=== PATIENT | female | born 1990 | race Caucasian/White ===

== ENCOUNTER 2018-04-27 19:07 | Inpatient (IN) ==
[~2018-04-27 19:07] MED LIST: Aminoglycoside Consult 1 EACH MC ONE
[2018-04-27] MEDS ORDERED: Naloxone 0.4 MG/ML INJ IVP PRN (21:49)
[2018-04-27] MEDS ORDERED: Acetaminophen 650 MG RECTAL SUPP RC PRN (21:49)
[2018-04-27] MEDS ORDERED: Vancomycin (wt based) 1,000 MG VIAL IVPB SCH (22:00)
[2018-04-27] MEDS ORDERED: Levofloxacin 750 MG/150 ML 750 MG/150 ML BAG IVPB SCH (22:00)
[2018-04-27] MEDS ORDERED: Acetaminophen 325 MG TABLET PO ONE (22:14)
--- NOTE | 2018-04-27 22:32 | Internal Med History&Physical ---
<Matthew Yoon - Last Filed: 04/27/18 23:34> Date of Encounter: 04/27/18 Time of Encounter: 22:30 Internal Medicine - H&P: HPI Chief complaint: Dyspnea/cough Admitted From: Hospital to Hospital Transfer Plans for Post Hospital Care: Home History of present illness: Ms. Krishnan is a 28 year old female with history of hypertension presents with shortness of breath and cough. Patient states on Monday she felt lightheadedness, fatigue, and had a syncopal episode. She continued to feel fatigued and then yesterday on she developed shortness of breath and felt feverish. At that point she presented to [place] emergency department where she was diagnosed with pneumonia and admitted to the hospital. Patient states while admitted to the hospital she continued to feel worse this morning developed a cough and had worsening shortness of breath. She reports having a hard time breathing and using her abdominal muscles to breathe which is causing her pain and fatigue. She reports continued fevers and intermittent nausea. She denies recent upper respiratory illness, sore throat, chest pain, vomiting, diarrhea or dysuria, lower extremity swelling, pain in her extremities. Past Med Surg Social Fam HX - Past Medical History Medical history: hypertension, migraine, other Additional medical history: HTN+ Psychiatric history: anxiety - Past Surgical History Surgical History: other Additional surgical history: Tubal Ligation - Social History Smoking Status: Current every day smoker (Patient reports that she started smoking 3 weeks ago, has never smoked before this) Packs per day: 0.5 Smokeless Tobacco Status: No Alcohol use: occasionally Drug use: none Recent Out of Country Travel Within the Last 8 Weeks: No - Family History Father Living Status: Still Living Mother Hx Family Cancer: Yes (cervical CA) Hx Family Endocrine Disorder: Yes (Diabetes) Internal Medicine - H&P: Meds Metoprolol Succinate [Toprol Xl] 25 mg PO DAILY 04/27/18 [History] 3 Allergy/AdvReac Type Severity Reaction Status Date / Time No Known Allergies Allergy Verified 07/05/17 10:59 All Systems PM: A 10-system review of systems was performed and is negative for pertinent findings except as documented above in the HPI. - Constitutional Constitutional: chills, fatigue, fever(s), lethargy - EENT Eyes: no blurry vision, no change in vision Nose, mouth and throat: no sinus pain, no sinus pressure, no sore throat - Cardiovascular Cardiovascular ROS IM: dyspnea, dyspnea on exertion, lightheadedness, palpitations, syncope, no chest pain, no diaphoresis - Respiratory Respiratory: cough, dyspnea, dyspnea on exertion, pain on inspiration, excessive phlegm production, no wheezing - Gastrointestinal Gastrointestinal: abdominal pain (with heavy breathing), nausea, no diarrhea, no vomiting - Genitourinary Genitourinary: no dysuria, no urinary frequency - Musculoskeletal Musculoskeletal ROS IM: no arthralgias, no numbness, no tingling - Integumentary Integumentary IM: no erythema, no new lesions - Neurological Neurological ROS: dizziness, no confusion, no focal weakness, no numbness, no tingling, no weakness - Psychiatric Psychiatric: anxiety, no depression - Endocrine Endocrine IM: no polydipsia, no polyuria - Hematologic/Lymphatic Hematologic/Lymphatic: no easy bleeding, no easy bruising, no lymphadenopathy - Allergic/Immunologic Allergic/Immunologic: no tongue swelling, no throat swelling - Constitutional Vitals: Temp Pulse Resp BP Pulse Ox 101.7 F H 134 34 133/88 95 04/27/18 22:00 04/27/18 22:00 04/27/18 22:00 04/27/18 22:00 04/27/18 22:00 General appearance: Present: mild distress, A&O X 3, answers questions appropriately Exam: Patient appears to be in respiratory distress, using accessory muscles. She is awake, alert and mentating appropriately and answering questions appropriately. - Head Head exam: Present: atraumatic, normal inspection, normocephalic - Eye Eye exam: Present: EOMI, PERRL - ENT ENT exam: Present: mucous membranes moist, normal oropharynx - Neck Neck exam general surgery: Present: full ROM, supple - Respiratory Respiratory exam: Present: accessory muscle use, respiratory distress, rhonchi ( diffuse), tachypnea. Absent: wheezes - Cardiovascular Cardiovascular exam: Present: +S1, +S2, tachycardia. Absent: gallop, irregular rhythm, rubs, systolic murmur - GI/Abdominal GI/Abdominal exam: Present: normal bowel sounds, soft, tenderness (mild epigastric). Absent: distended - Extremities Exam Extremities exam: Present: warm, radial pulses palpable and symmetrical. Absent : pedal edema, tenderness - Neurological Exam Neurological exam: Present: alert, CN II-XII intact, oriented X3, no focal deficits - Psychiatric Psychiatric exam: Present: anxious, normal affect, normal mood - Skin Skin exam: Present: dry, intact, warm Internal Med - H&P Results - Labs CBC & Chem 7: 04/27/18 23:00 - Assessment and plan (1) Acute respiratory failure Current Visit: Yes Status: Acute Assessment and plan: Likely secondary to pneumonia and sepsis. Patient requiring increasing oxygen supplementation and in 24 hours chest x-ray has significantly worsened with patchy bilateral infiltrates. Given patient's worsening hypoxia and developed of diffuse bilateral infiltrates concern for progression to ARDS. Patient is having respiratory distress with accessory muscle use and tachypnea. We will transition to BiPAP to assist with workup breathing. If patient continues to progress may require mechanical ventilation. Qualifiers: Respiratory failure complication: hypoxia Qualified Code(s): J96.01 - Acute respiratory failure with hypoxia (2) Sepsis Current Visit: Yes Status: Acute Assessment and plan: Secondary to pneumonia. Patient presented yesterday and received 3L fluid bolus. Lactic acid normal on admission. BP stable at this time. Repeat lactate now, Blood cultures drawn on admission, will repeat now. Hold off on any more fluid administration this time as patient is normotensive. Will closely monitor. Qualifiers: Sepsis type: sepsis due to unspecified organism Qualified Code(s): A41.9 - Sepsis, unspecified organism (3) Pneumonia Current Visit: Yes Status: Acute Assessment and plan: Evidence of multifocal pneumonia on chest x-ray and CT. She will treated for community acquired pneumonia with Rocephin and Zithromax, given patient's worsening clinical status in ICU admission we will broaden her antibiotic coverage to vancomycin, Zosyn, Levaquin. Repeat blood cultures, obtain sputum culture, strep and Legionella urinary antigen, MRSA nasal swab, respiratory infection, mycoplasma serologies. Qualifiers: Pneumonia type: due to unspecified organism Laterality: bilateral Lung location: unspecified part of lung Qualified Code(s): J18.9 - Pneumonia, unspecified organism (4) DVT prophylaxis Current Visit: No Status: Acute Assessment and plan: Heparin 5000 units subcutaneous twice a day. (5) Hypertension Current Visit: Yes Status: Chronic Assessment and plan: History of. Patient currently normotensive. We will hold home metoprolol given concern for sepsis as discussed above and worsening blood pressure Qualifiers: Hypertension type: essential hypertension Qualified Code(s): I10 - Essential (primary) hypertension - Time Spent With Patient Total time spent is greater than 50% in coordination of care (as documented) at patient's floor/unit and/or counseling patient: Hermes Yan - Last Filed: 04/27/18 23:39> Date of Encounter: 04/27/18 Internal Medicine - H&P: HPI History of present illness: Ms. Krishnan is a 28 year old female All Systems PM: A 10-system review of systems was performed and is negative for pertinent findings except as documented above in the HPI. - Constitutional Vitals: Temp Pulse Resp BP Pulse Ox 101.7 F H 134 38 124/89 95 04/27/18 22:00 04/27/18 23:00 04/27/18 23:00 04/27/18 23:00 04/27/18 23:00 Internal Med - H&P Results - Labs CBC & Chem 7: 04/27/18 23:00 Labs: Short CBC 04/27/18 Range/Units 23:00 WBC 17.5 H (4.3-11.1) K/mcL Hgb 12.2 (11.5-15.4) g/dL Hct 38.6 (35.3-44.9) % Plt Count 279 (140-400) K/mcL Neutrophils # 15.8 H (1.6-8.9) K/mcL - ABG Interpretation ABG results: 04/27/18 22:56 ABG pH 7.45 ABG pCO2 33 L ABG pO2 72 L ABG HCO3 23 ABG Total CO2 24 ABG O2 Saturation 95 ABG Base Excess -1 - Assessment and plan (1) DVT prophylaxis Current Visit: No Status: Acute (2) Pneumonia Current Visit: Yes Status: Acute Qualifiers: Pneumonia type: due to unspecified organism Laterality: bilateral Lung location: unspecified part of lung Qualified Code(s): J18.9 - Pneumonia, unspecified organism (3) Sepsis Current Visit: Yes Status: Acute Qualifiers: Sepsis type: sepsis due to unspecified organism Qualified Code(s): A41.9 - Sepsis, unspecified organism (4) Acute respiratory failure Current Visit: Yes Status: Acute Qualifiers: Respiratory failure complication: hypoxia Qualified Code(s): J96.01 - Acute respiratory failure with hypoxia (5) Hypertension Current Visit: Yes Status: Chronic Qualifiers: Hypertension type: essential hypertension Qualified Code(s): I10 - Essential (primary) hypertension - Time Spent With Patient Total time spent is greater than 50% in coordination of care (as documented) at patient's floor/unit and/or counseling patient: - Attending Attestation Deirdre Krishnan 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 She was found febrile to 102F with diminished breath sounds bilaterally. CXR done showed a bilateral infiltrate and due to her persistent tachycardia and elevated d-dimer a CTA was done. This ruled out PE however it showed significant bilateral airspace disease with the appearance of a multifocal pneumonia as per my personal review of the images. She was started on IVF and ceftriaxone/azithromycin for CAP. She showed no improvement over these last 24 hours, with increasing leukocytosis and worsening hypoxia now requiring 3L O2 to maintain SpO2 at 94%. Repeat CXR showed worsening infiltrates as well. She is now transferred here for further care. Based on the above evaluation, we will admit her to ICU level of care for sepsis secondary to multifocal pneumonia with acute hypoxic respiratory failure. On arrival here she appears somewhat clinically stable. Review of systems: All systems reviewed and negative except as listed above in the HPI. Family history remarkable for cervical cancer in mother and heart disease in father. Denies illicit drug use but is an active smoker of recent initiation. Physical exam is remarkable for HR >130 but normal BP. Obese white F lying comfortably in bed in NAD. Short, thick neck. EOMI. No oropharyngeal exudate. Diminished breath sounds bilaterally. Tachycardic but no murmurs. Soft and non- tender abdomen. No peripheral cyanosis. 1+ edema. AAOx3. No focal deficits. Affect appropriate. Plan: Repeat blood cultures, obtain sputum cultures, urine Legionella/Strep Ag, respiratory virus panel, Mycoplasma IgM, MRSA nares swab, HIV testing. Obtain TTE given the appearance of embolic lesions. Escalate abx to vancomycin, piptazo and levofloxacin for additional atypical coverage. Close respiratory watch as she could easily progress into ARDS and may require mechanical ventilation. Keep a neutral fluid balance at this point after already receiving 4L at outside facility and subsequent furosemide. CCT 55 mins. SAUNDRA FIELDS.
[2018-04-27] MEDS: *HR* Promethazine 25 MG/ML VIAL IVP PRN (22:51)
[2018-04-27 23:02] LABS: ABG Base Excess -1 mEq/L (-2 to 3); ABG HCO3 23 mEq/L (21-27); ABG Oxygen Saturation 95 % (95-98); ABG PCO2 33 mmHg (35-45); ABG PH 7.45 pH Units (7.32-7.45); ABG PO2 72 mmHg (85-104); ABG TCO2 24 mEq/L (20-26); Blood Gas PEEP 8 cm H2O
[2018-04-27] MEDS ORDERED: *HR* LORazepam 2 MG/ML VIAL IVP ONE (23:19)
[2018-04-27 23:22] LABS: Basophils % 0.1 %; Eosinophils # 0.3 K/mcL (0.0-0.6); Eosinophils % 1.5 %; Hematocrit 38.6 % (35.3-44.9); Hemoglobin 12.2 g/dL (11.5-15.4); Immature Granulocytes % 0.5 % (0-4); Lymphocytes # 0.7 K/mcL (0.6-4.6); Lymphocytes % 4.1 %; Mean Corpuscular HGB Conc 31.6 g/dL (31.6-35.5); Mean Corpuscular Hemoglobin 23.7 pg (28.0-33.3); Mean Platelet Volume 10.9 fL (9.4-12.4); Monocytes # 0.6 K/mcL (0.0-1.3); Monocytes % 3.7 %; Neutrophils # 15.8 K/mcL (1.6-8.9); Platelet Count 279 K/mcL (140-400); Red Blood Count 5.15 M/mcL (3.82-4.97); Red Cell Distribution Width 15.7 % (11.5-14.5); Segmented Neutrophils % 90.1 %
[2018-04-27] MEDS ORDERED: Ketorolac 30 MG/ML VIAL IVP ONE (23:32)
[2018-04-27 23:45] LABS: Alanine Aminotransferase 10 Units/L (7-52); Albumin 3.6 g/dL (3.5-5.7); Albumin/Globulin Ratio 1.1 (1.1-2.2); Alkaline Phosphatase 74 Units/L (34-104); Aspartate Amino Transferase 11 Units/L (13-39); BUN/Creatinine Ratio 8 (6-26); Bilirubin,Direct 0.2 mg/dL (0.0-0.2); Bilirubin,Indirect 0.4 mg/dL (0.0-1.2); Bilirubin,Total 0.6 mg/dL (0.3-1.0); Blood Urea Nitrogen 5 mg/dL (6-20); Calcium 8.2 mg/dL (8.6-10.3); Carbon Dioxide 24 mEq/L (23-29); Chloride 102 mEq/L (98-107); Globulin 3.3 g/dL (2.4-3.5); Glucose 121 mg/dL (70-105); Magnesium 1.7 mg/dL (1.6-2.6); Osmolality,Calculated 279 (280-300); Potassium 3.6 mEq/L (3.5-5.1); Sodium 135 mEq/L (136-145); Total Protein 6.9 g/dL (6.4-8.9); eGFR For Non-African Americans > 60 (> 60)
[2018-04-27 23:46] LABS: Lactate Dehydrogenase 138 Units/L (140-271)
[2018-04-28 00:05] LABS: Ferritin 59 ng/mL (10-120)
[2018-04-28 00:50] LABS: Adenovirus Not Detected (Not Detect); Bordetella Pertussis Not Detected (Not Detect); Chlamydophila pneumoniae Not Detected (Not Detect); Coronavirus 229E Not Detected (Not Detect); Coronavirus HKU1 Not Detected (Not Detect); Coronavirus NL63 Not Detected (Not Detect); Coronavirus OC43 Not Detected (Not Detect); Human Metapneumovirus Not Detected (Not Detect); Human Rhinovirus/Enterovirus Not Detected (Not Detect); Influenza A Subtype 2009 H1 Not Detected (Not Detect); Influenza A Untypeable Not Detected (Not Detect); Influenza B Not Detected (Not Detect); Mycoplasma pneumoniae Not Detected (Not Detect); Parainfluenza Virus 1 Not Detected (Not Detect); Parainfluenza Virus 2 Not Detected (Not Detect); Parainfluenza Virus 3 Not Detected (Not Detect); Parainfluenza Virus 4 Not Detected (Not Detect); Respiratory Syncytial Virus Not Detected (Not Detect)
[2018-04-28] MEDS ORDERED: Bisacodyl 10 MG RECTAL SUPPOSITORY RC ONE (01:28)
[2018-04-28] MEDS ORDERED: Ondansetron 4 MG/2 ML VIAL ONE (03:30)
[2018-04-28] MEDS ORDERED: Ondansetron 4 MG/2 ML VIAL IVP PRN (03:30)
[2018-04-28] MEDS ORDERED: *HR* LORazepam 2 MG/ML VIAL IVP ONE (03:39)
[2018-04-28] MEDS: Piperacillin/Tazobactam 3.375 GM in 0.9 % Sodium Chloride Mini Bag 100 ML IVPB SCH ×3 (03:45→15:55)
[2018-04-28 04:13] LABS: Albumin 3.3 g/dL (3.5-5.7); Bilirubin,Direct 0.2 mg/dL (0.0-0.2); Bilirubin,Indirect 0.3 mg/dL (0.0-1.2); Bilirubin,Total 0.5 mg/dL (0.3-1.0); Globulin 3.2 g/dL (2.4-3.5); Magnesium 1.6 mg/dL (1.6-2.6); Total Protein 6.5 g/dL (6.4-8.9)
--- NOTE | 2018-04-28 04:17 | Sepsis Event Note ---
Sepsis Reassessment Note - Evaluation Sepsis Screen: Sepsis Risk Current Stage of Sepsis: sepsis Possible Source of Sepsis: pulmonary - Focused Exam Date of Encounter: 04/28/18 Time of Encounter: 04:15 Vital Signs: Vital Signs Temp Pulse Resp BP Pulse Ox 04/28/18 04:00 122 35 137/95 97 04/28/18 03:53 40 123/89 96 04/28/18 03:20 99.7 F H 04/28/18 03:00 124 34 135/112 97 04/28/18 02:00 114 33 121/80 96 04/28/18 01:00 111 30 133/84 96 04/28/18 00:01 126 34 135/78 96 04/27/18 23:37 100.4 F H 04/27/18 23:00 134 38 124/89 95 04/27/18 22:34 137 96 04/27/18 22:17 27 96 04/27/18 22:00 101.7 F H 134 34 133/88 95 Respiratory Exam: Present: rhonchi Cardiovascular Exam: Present: tachycardia. Absent: irregulary irregular Capillary Refill: < 2 seconds Peripheral Pulse Strength: 3+ normal Peripheral Pulse Location: Radial Skin Exam: normal turgor - Reassessment Comments Comments: Patient appears stable. Remains in sepsis, clinically improving
[2018-04-28 05:07] LABS: ABG Base Excess -1 mEq/L (-2 to 3); ABG HCO3 23 mEq/L (21-27); ABG Oxygen Saturation 97 % (95-98); ABG PCO2 34 mmHg (35-45); ABG PH 7.43 pH Units (7.32-7.45); ABG PO2 83 mmHg (85-104); ABG TCO2 24 mEq/L (20-26); Blood Gas PEEP 8 cm H2O
[2018-04-28] MEDS ORDERED: Furosemide 40 MG/4 ML VIAL IVP ONE (05:55)
[2018-04-28] MEDS: *HR* Heparin 5,000 UNIT/ML VIAL SQ SCH ×2 (06:03→17:42)
[2018-04-28] MEDS: *HR* Promethazine 25 MG/ML VIAL IVP PRN ×3 (06:22→19:36)
[2018-04-28] MEDS ORDERED: Benzonatate 100 MG CAPSULE PO PRN (06:29)
[2018-04-28 06:48] LABS: Basophils % 0.1 %; Eosinophils # 0.3 K/mcL (0.0-0.6); Eosinophils % 1.6 %; Hematocrit 36.6 % (35.3-44.9); Hemoglobin 11.3 g/dL (11.5-15.4); Immature Granulocytes % 0.4 % (0-4); Lymphocytes # 0.7 K/mcL (0.6-4.6); Lymphocytes % 3.9 %; Mean Corpuscular HGB Conc 30.9 g/dL (31.6-35.5); Mean Corpuscular Hemoglobin 23.5 pg (28.0-33.3); Mean Corpuscular Volume 76.3 fL (83.0-100.0); Mean Platelet Volume 11.2 fL (9.4-12.4); Monocytes # 0.5 K/mcL (0.0-1.3); Monocytes % 2.6 %; Neutrophils # 16.5 K/mcL (1.6-8.9); Platelet Count 241 K/mcL (140-400); Red Cell Distribution Width 15.6 % (11.5-14.5); Segmented Neutrophils % 91.4 %
--- NOTE | 2018-04-28 07:01 | Pulmonology Consult Note ---
<Aramis Perez W - Last Filed: 04/28/18 08:37> Date of Encounter: 04/28/18 Medications and Allergies Metoprolol Succinate [Toprol Xl] 25 mg PO DAILY 04/27/18 [History] 3 Allergy/AdvReac Type Severity Reaction Status Date / Time No Known Allergies Allergy Verified 07/05/17 10:59 All Systems: The remainder of the systems were reviewed and are negative Physical Examination Vital Signs: Vital Signs, Last 4 Hours Temp Pulse Resp BP Pulse Ox 04/28/18 07:40 99.9 F H 04/28/18 06:00 128 41 140/91 99 04/28/18 05:00 128 37 143/90 97 Results - Laboratory Findings CBC and BMP: 04/28/18 06:30 04/28/18 06:30 ABG ABG pH 7.43 pH Units (7.32-7.45) 04/28/18 05:03 ABG pCO2 34 mmHg (35-45) L 04/28/18 05:03 ABG pO2 83 mmHg (85-104) L 04/28/18 05:03 ABG O2 Saturation 97 % (95-98) 04/28/18 05:03 Abnormal lab findings: Abnormal lab results WBC 18.0 K/mcL (4.3-11.1) H 04/28/18 06:30 Hgb 11.3 g/dL (11.5-15.4) L 04/28/18 06:30 MCV 76.3 fL (83.0-100.0) L 04/28/18 06:30 MCH 23.5 pg (28.0-33.3) L 04/28/18 06:30 MCHC 30.9 g/dL (31.6-35.5) L 04/28/18 06:30 RDW 15.6 % (11.5-14.5) H 04/28/18 06:30 Neutrophils # 16.5 K/mcL (1.6-8.9) H 04/28/18 06:30 ABG pCO2 34 mmHg (35-45) L 04/28/18 05:03 ABG pO2 83 mmHg (85-104) L 04/28/18 05:03 Creatinine 1.38 mg/dL (0.60-1.20) H 04/28/18 06:30 Est GFR ( Amer) 56 (> 60) L 04/28/18 06:30 Est GFR (Non-Af Amer) 46 (> 60) L 04/28/18 06:30 Glucose 116 mg/dL (70-105) H 04/28/18 06:30 POC Glucose 140 mg/dL (70-99) H 04/27/18 21:59 Calcium 8.0 mg/dL (8.6-10.3) L 04/28/18 06:30 AST 9 Units/L (13-39) L 04/28/18 03:18 Lactate Dehydrogenase 138 Units/L (140-271) L 04/27/18 23:00 Albumin 3.3 g/dL (3.5-5.7) L 04/28/18 03:18 Albumin/Globulin Ratio 1.0 (1.1-2.2) L 04/28/18 03:18 - Microbiology Findings Microbiology Findings: Microbiology, Last 48 Hours 04/27/18 23:40 Legionella Antigen - Final Urine,Clean Catch Streptococcus pneumoniae Antigen (M - Final 04/27/18 23:00 Blood Culture - Preliminary Peripheral Venipuncture Culture is incubating and being continuously monitored for growth. Final report to follow. 04/27/18 23:21 Blood Culture - Preliminary Peripheral Venipuncture Culture is incubating and being continuously monitored for growth. Final report to follow. - Clinical Findings Intake & Output: Intake & Output 04/27/18 04/28/18 04/28/18 23:59 07:59 15:59 Intake Total 0 / 0 650 / 650 100 / 100 Output Total 325 / 325 535 / 535 Balance -325 / -325 115 / 115 100 / 100 Weight 107.8 kg 107.8 kg Consult Discharge Plan - Plan Referrals: Breann Brock MD [Primary Care Provider] - - Attending Attestation I examined this patient and my medical decision-making was reviewed with the Resident Physician. I agree with the documented findings, disposition and treatment plan as described except to the extent set forth below. We independently had [id number] contact with the patient Patient seen and examined at bedside Labs, radiology, chart personally reviewed. Management was reviewed during multidisciplinary critical care rounds. CLUB DIRECTOR: Patient is anxious and she will be giving Ativan and Precedex as needed for comfort Pulm: Acute hypoxic respiratory failure secondary to pneumonia and suspected progression to ARDS P/F ratio has improved overnight respiratory status remains tenuous and she is on IV flow nasal cannula O2 through [place] system high risk for further deterioration requiring intubation and mechanical ventilation we will give steroids for early ARDS/severe community-acquired pneumonia. Patient recently started smoking I counseled her against using nicotine. Cards: Remains tachycardic which is sinus likely a combination of stress and hypoxia echocardiogram pending blood pressure stable GI: Continue to monitor Nutrition: Nothing by mouth for now because of respiratory status Renal: Mild AKA overnight which is likely secondary to diuresis (also recieved a dose of NSAID which has been held) we will hold further diuresis but aim to keep net even to slightly negative volume status. Because of respiratory status /ARDS UOP Monitored, Cont to Trend sCr and monitor Electrolytes. ID: Treating for severe community acquired pneumonia patient did not respond initially to antimicrobials she does have some exposure to hospital associated pathogens and so her antimicrobials were broaden out MRSA swab negative respiratory infection panel pending Heme/Onc: DVT prophylaxis given Endo: Glucose Monitored Integ/MSK: Skin Care per routine ICU Nursing Protocol to prevent ulcers. Lines: All lines examined without evidence of infection : Dispo: Monitor in ICU today CODE: Full Code updated at bedside <Salomon Sparks - Last Filed: 04/28/18 15:15> Date of Encounter: 04/28/18 Time of Encounter: 11:11 Assessment and Plan (1) Acute respiratory failure Current Visit: Yes Status: Acute Likely secondary to pneumonia and sepsis. Chest x-ray shows patchy bilateral infiltrates-concerning for ARDS Concern for heart failure, echocardiography to be performed once heart rate less than 110 Patient is currently resting comfortably on 50 L/m via high flow nasal oxygen There are no retractions, accessory muscle use, or cyanosis appreciated. Continue x-ray evaluation for progression of infiltrates and edema 40 mg Solu-Medrol every 12 hour Continue to monitor Qualifiers: Respiratory failure complication: hypoxia Qualified Code(s): J96.01 - Acute respiratory failure with hypoxia (2) Sepsis Current Visit: Yes Status: Acute Likely secondary to pneumonia. Lactic acid is normal at 0.8. White blood cell count is currently 18.0-mildly elevated from 17.5 on 04/27/2018 BP currently stable at 125/83, patient is non-tachycardic, and afebrile Patient continues to be tachypneic at 32 breaths per minute Continue to monitor Qualifiers: Sepsis type: sepsis due to unspecified organism Qualified Code(s): A41.9 - Sepsis, unspecified organism (3) Pneumonia Current Visit: Yes Status: Acute Evidence of multifocal pneumonia on chest x-ray and CT Patient treated for community acquired pneumonia-initially with Rocephin and Zithromax Patient transitioned in ICU to vancomycin, Zosyn, Levaquin Vancomycin stopped due to negative MRSA swab Respiratory panel negative, Streptococcus and Legionella antigen negative Sputum culture not able to be performed due to poor sputum production Mycoplasma and blood cultures pending Continue to monitor Qualifiers: Pneumonia type: due to unspecified organism Laterality: bilateral Lung location: unspecified part of lung Qualified Code(s): J18.9 - Pneumonia, unspecified organism (4) Tachycardia Current Visit: No Status: Acute Patient states she has chronic sinus tachycardia Patient heart rate up to 137 bpm and seems associated with anxiety Precedex titration initiated-patient heart rate responded well, decreasing to less than 100 bpm Continue to monitor (5) Hypertension Current Visit: No Status: Chronic Patient has known past medical history of hypertension Patient is currently normotensive Currently holding home antihypertensive medication Continue to monitor Qualifiers: Hypertension type: essential hypertension Qualified Code(s): I10 - Essential (primary) hypertension (6) DVT prophylaxis Current Visit: No Status: Acute Heparin 5000 units subcutaneous 2 times per day. History of Present Illness Consult date: 04/28/18 Reason for consult: dyspnea, cough, pneumonia, abnormal CXR/CT Chief complaint: Shortness of breath History of present illness: Patient is a 28-year-old female with a history of hypertension that presents to [facility] ICU with shortness of breath and cough. Patient states on Monday night she felt lightheadedness with fatigue that resulted in a single episode. Fatigue carried on into the next day with the patient developed shortness of breath and fever. Patient was seen at [place] emergency department where she was diagnosed with pneumonia. Patient was admitted to the hospital where she continued gradually developing cough as well as worsening shortness of breath with accessory muscle use. Patient also complains of continued fever and intermittent nausea. Patient is currently able to rest on 50 L/m via high flow nasal cannula- alternating with BiPAP. There is currently no acute distress, patient is alert and oriented, answering questions appropriately. Past Med Surg Social Fam HX - Past Medical History Medical history: hypertension, migraine, other Additional medical history: HTN+ Psychiatric history: anxiety - Past Surgical History Surgical History: other Additional surgical history: Tubal Ligation - Social History Smoking Status: Current every day smoker (Patient reports that she started smoking 3 weeks ago, has never smoked before this) Packs per day: 0.5 Smokeless Tobacco Status: No Alcohol use: occasionally Drug use: none - Family History Father Living Status: Still Living Mother Hx Family Cancer: Yes (cervical CA) Hx Family Endocrine Disorder: Yes (Diabetes) All Systems: The remainder of the systems were reviewed and are negative - Constitutional Constitutional: fatigue, weakness, no headache(s) - EENT Eyes: no loss of vision Nose, mouth and throat: no dizziness, no headache(s) - Cardiovascular Cardiovascular: chest pain (Patient states she believes the chest pain is associated with accessory muscles of respiration which are sore from labored breathing), dyspnea - Respiratory Respiratory: dyspnea - Gastrointestinal Gastrointestinal: nausea (Patient states nausea is well controlled at this time) , vomiting (Patient admits to vomiting last night but has no episodes since), no abdominal pain - Musculoskeletal Musculoskeletal: tingling (Patient admits to paresthesia in the fingertips of her right hand) - Neurological Neurological: no headache(s), no loss of vision, no other visual disturbances Physical Examination Vital Signs: Vital Signs, Last 4 Hours Temp Pulse Resp BP Pulse Ox 04/28/18 06:00 128 41 140/91 99 04/28/18 05:00 128 37 143/90 97 04/28/18 04:00 122 35 137/95 97 04/28/18 03:53 40 123/89 96 04/28/18 03:20 99.7 F H General appearance: no acute distress, alert, asleep (Patient states that she is very tired and has been sleeping intermittently during examination) Eyes: nonicteric ENT: oropharynx moist Effort: normal Auscultation: bilateral: rhonchi Cardiovascular: regular rate and rhythm Gastrointestinal: normoactive bowel sounds, soft, non-tender, non-distended Extremities: no cyanosis, no edema, pulses normal (Dorsalis pedis pulses palpated) non-focal exam mood appropriate, affect normal, anxious Results - Laboratory Findings CBC and BMP: 04/28/18 06:30 04/28/18 12:50 ABG ABG pH 7.43 pH Units (7.32-7.45) 04/28/18 05:03 ABG pCO2 34 mmHg (35-45) L 04/28/18 05:03 ABG pO2 83 mmHg (85-104) L 04/28/18 05:03 ABG O2 Saturation 97 % (95-98) 04/28/18 05:03 Abnormal lab findings: Abnormal lab results WBC 18.0 K/mcL (4.3-11.1) H 04/28/18 06:30 Hgb 11.3 g/dL (11.5-15.4) L 04/28/18 06:30 MCV 76.3 fL (83.0-100.0) L 04/28/18 06:30 MCH 23.5 pg (28.0-33.3) L 04/28/18 06:30 MCHC 30.9 g/dL (31.6-35.5) L 04/28/18 06:30 RDW 15.6 % (11.5-14.5) H 04/28/18 06:30 Neutrophils # 16.5 K/mcL (1.6-8.9) H 04/28/18 06:30 ABG pCO2 34 mmHg (35-45) L 04/28/18 05:03 ABG pO2 83 mmHg (85-104) L 04/28/18 05:03 Sodium 135 mEq/L (136-145) L 04/27/18 23:00 BUN 5 mg/dL (6-20) L 04/27/18 23:00 Creatinine 0.59 mg/dL (0.60-1.20) L 04/27/18 23:00 Glucose 121 mg/dL (70-105) H 04/27/18 23:00 POC Glucose 140 mg/dL (70-99) H 04/27/18 21:59 Calculated Osmolality 279 (280-300) L 04/27/18 23:00 Calcium 8.2 mg/dL (8.6-10.3) L 04/27/18 23:00 AST 9 Units/L (13-39) L 04/28/18 03:18 Lactate Dehydrogenase 138 Units/L (140-271) L 04/27/18 23:00 Albumin 3.3 g/dL (3.5-5.7) L 04/28/18 03:18 Albumin/Globulin Ratio 1.0 (1.1-2.2) L 04/28/18 03:18 - Microbiology Findings Microbiology Findings: Microbiology, Last 48 Hours 04/27/18 23:40 Legionella Antigen - Final Urine,Clean Catch Streptococcus pneumoniae Antigen (M - Final 04/27/18 23:00 Blood Culture - Preliminary Peripheral Venipuncture Culture is incubating and being continuously monitored for growth. Final report to follow. 04/27/18 23:21 Blood Culture - Preliminary Peripheral Venipuncture Culture is incubating and being continuously monitored for growth. Final report to follow. - Clinical Findings Intake & Output: Intake & Output 04/27/18 04/27/18 04/28/18 15:59 23:59 07:59 Intake Total 0 / 0 650 / 650 Output Total 325 / 325 535 / 535 Balance -325 / -325 115 / 115 Weight 107.8 kg 107.8 kg
[2018-04-28 07:09] LABS: Potassium 4.1 mEq/L (3.5-5.1)
[2018-04-28] MEDS: Dexmedetomidine HCl 400 MCG/100 ML MLS IVC SCH (08:21)
[2018-04-28] MEDS: MethylPREDNISolone 40 MG/ML VIAL IVP SCH ×2 (08:21→17:42)
[2018-04-28] MEDS ORDERED: *HR* Metoprolol 5 MG/5 ML VIAL IVP ONE (09:00)
[2018-04-28] MEDS ORDERED: Acetaminophen 325 MG TABLET PO ONE (12:17)
[2018-04-28 13:24] LABS: Calcium 8.4 mg/dL (8.6-10.3); Potassium 4.3 mEq/L (3.5-5.1)
[2018-04-28] MEDS ORDERED: Ringers Solution, Lactated 500 ML IVC ONE (15:32)
[2018-04-28] MEDS ORDERED: *HR* OxyCODONE/APAP 5/325 TABLET PO PRN (17:58)
[2018-04-28] MEDS ORDERED: MethylPREDNISolone 40 MG/ML VIAL IVP SCH (18:00)
[2018-04-28 18:06] LABS: Bilirubin,Urine Negative (Negative); Blood,Urine Moderate (Negative); Clarity,Urine Cloudy (Clear); Color,Urine Yellow (Yellow); Glucose,Urine (UA) Normal (Normal); Ketones,Urine Negative (Negative); Leukocyte Esterase,Urine Negative (Negative); Nitrite,Urine Negative (Negative); Protein,Urine Trace mg/dL (Neg-Trace); Urobilinogen,Urine Normal (Normal)
[2018-04-28 18:07] LABS: Bacteria,Urine None Seen per hpf (None-Few); Hyaline Casts,Urine None Seen per lpf (None-Few); Squamous Epithelial Cell,Urine Many per lpf (None-Few)
[2018-04-28 18:28] LABS: RBC,Urine 0-3 per hpf (0-3); WBC,Urine 0-3 per hpf (0-3)
[2018-04-28 22:16] LABS: Calcium 8.6 mg/dL (8.6-10.3)
[2018-04-29] MEDS: Dexmedetomidine HCl 400 MCG/100 ML MLS IVC SCH ×2 (02:17→19:40)
[2018-04-29] MEDS: *HR* Heparin 5,000 UNIT/ML VIAL SQ SCH ×2 (05:04→17:23)
[2018-04-29] MEDS: MethylPREDNISolone 40 MG/ML VIAL IVP SCH ×2 (05:04→17:23)
[2018-04-29] MEDS: Piperacillin/Tazobactam 3.375 GM in 0.9 % Sodium Chloride Mini Bag 100 ML IVPB SCH ×3 (07:42→19:37)
[2018-04-29 07:44] LABS: Basophils % 0.1 %; Eosinophils # 0.3 K/mcL (0.0-0.6); Eosinophils % 1.7 %; Hemoglobin 11.4 g/dL (11.5-15.4); Immature Granulocytes % 0.5 % (0-4); Lymphocytes # 0.8 K/mcL (0.6-4.6); Lymphocytes % 5.3 %; Mean Corpuscular HGB Conc 31.7 g/dL (31.6-35.5); Mean Corpuscular Hemoglobin 23.8 pg (28.0-33.3); Mean Corpuscular Volume 75.2 fL (83.0-100.0); Mean Platelet Volume 10.9 fL (9.4-12.4); Monocytes # 0.4 K/mcL (0.0-1.3); Monocytes % 2.7 %; Neutrophils # 13.5 K/mcL (1.6-8.9); Platelet Count 262 K/mcL (140-400); Red Blood Count 4.79 M/mcL (3.82-4.97); Red Cell Distribution Width 15.2 % (11.5-14.5); Segmented Neutrophils % 89.7 %
[2018-04-29 08:03] LABS: Calcium 8.7 mg/dL (8.6-10.3); Potassium 4.4 mEq/L (3.5-5.1)
--- NOTE | 2018-04-29 08:03 | Pulmonology Progress Note ---
Date of Encounter: 04/29/18 Time of Encounter: 08:03 Assessment and Plan (1) Acute respiratory failure Current Visit: Yes Status: Acute I suspect this is related to pneumonia with features of ARDS She is tolerating and up 10 high flow system at 30 L/30% FiO2 we can use BiPAP on an as needed basis for increase in work of breathing High risk for further deterioration requiring intubation Qualifiers: Respiratory failure complication: hypoxia Qualified Code(s): J96.01 - Acute respiratory failure with hypoxia (2) Bilateral pneumonia Current Visit: No Status: Acute Bilateral multifocal opacities which may represent infectious process versus inflammatory condition I do shreya conversation with the patient that I am concerned that this may in fact be an inflammatory condition such as vasculitis and although she is not having any hemoptysis alveolar hemorrhage cannot be fully excluded without bronchoscopy. Given the fact that she has had rapidly progressive kidney failure I believe that bronchoscopy is indicated this will afford us the possibility to take bronchoalveolar lavage to sent for microbiological data as well as to evaluate for alveolar hemorrhage. I explained that the patient is at increased risk for complications because of her underlying hypoxemia I requested anesthesiologist to assess for the case to minimize the time needed to perform the procedure insuring patient comfort and least amount of chance for hypoxemia regardless she will be at increased risk for needing to be intubated during or after the procedure. Both the patient and her understand the risk involved with this procedure and the possible diagnostic benefits. Encouragingly her white count is decreased today and we will continue steroids for severe to be acquired pneumonia and will also continue antimicrobials cultures as far negative A bronchoscopy is recommended. The procedure , risks, benefits, complications, and expected outcomes have been reviewed. Benefits of diagnosis, as well as risks to include bleeding, infection, pneumothorax which may require surgical intervention, and in a small population. The patient is aware that sometimes test is nondiagnostic. Discussed with patient and she agrees to proceed. Qualifiers: Pneumonia type: due to unspecified organism Lung location: unspecified part of lung Qualified Code(s): J18.9 - Pneumonia, unspecified organism (3) CHIDI (acute kidney injury) Current Visit: Yes Status: Acute Rapidly progressive acute kidney injury which it first was thought to be secondary to prerenal azotemia complicated by diuresis and use of nonsteroidal anti-inflammatory medication. Unfortunately her kidney function has worsened and she has evidence of hematuria on her urinalysis which brings up the possibility of a combined pulmonary renal syndrome such as vasculitis. I have consulted the on-call virtual customer assistant and he is agreed to come and evaluate the patient I sent off basic serologies and we will obtained a ultrasound of her kidneys. (4) Hematuria Current Visit: Yes Status: Acute Qualifiers: Qualified Code(s): R31.9 - Hematuria, unspecified (5) DVT prophylaxis Current Visit: No Status: Acute Continue chemical DVT prophylaxis Subjective Principal diagnosis: Pneumonia Interval history: Overnight the patient was maintained on BiPAP with acceptable oxygen saturation. She seems to be breathing more comfortably this morning and we are able to transition her from BiPAP to nasal cannula (Hi flow [place] system) Unfortunately her renal function has deteriorated rapidly now her creatinine is 3.8 from a baseline of 0.5 at admission She denies any joint pain fevers rash prior to admission to the hospital nor since her hospitalization Objective PUL Vital signs: Last Vital Signs Temp 98.2 F 04/29/18 04:00 Pulse 57 04/29/18 07:00 Resp 26 04/29/18 07:00 BP 126/74 04/29/18 07:00 Pulse Ox 97 04/29/18 07:00 General appearance: no acute distress Eyes: nonicteric ENT: oropharynx moist Neck: supple Effort: mildly labored Auscultation: bilateral: rales (Scattered in all lung vega) Cardiovascular: regular rate and rhythm Gastrointestinal: normoactive bowel sounds, soft, non-tender Integumentary: normal Extremities: no cyanosis, no edema, no clubbing Musculoskeletal: no deformities normal mental status, non-focal exam mood appropriate Results - Laboratory Findings CBC and BMP: 04/29/18 07:34 04/29/18 07:34 ABG ABG pH 7.43 pH Units (7.32-7.45) 04/28/18 05:03 ABG pCO2 34 mmHg (35-45) L 04/28/18 05:03 ABG pO2 83 mmHg (85-104) L 04/28/18 05:03 ABG O2 Saturation 97 % (95-98) 04/28/18 05:03 Abnormal lab findings: Abnormal lab results WBC 15.0 K/mcL (4.3-11.1) H 04/29/18 07:34 Hgb 11.4 g/dL (11.5-15.4) L 04/29/18 07:34 MCV 75.2 fL (83.0-100.0) L 04/29/18 07:34 MCH 23.8 pg (28.0-33.3) L 04/29/18 07:34 RDW 15.2 % (11.5-14.5) H 04/29/18 07:34 Neutrophils # 13.5 K/mcL (1.6-8.9) H 04/29/18 07:34 ABG pCO2 34 mmHg (35-45) L 04/28/18 05:03 ABG pO2 83 mmHg (85-104) L 04/28/18 05:03 Sodium 135 mEq/L (136-145) L 04/28/18 21:48 Carbon Dioxide 20 mEq/L (23-29) L 04/28/18 21:48 BUN 31 mg/dL (6-20) H 04/28/18 21:48 Creatinine 3.28 mg/dL (0.60-1.20) H 04/28/18 21:48 Est GFR ( Amer) 20 (> 60) L 04/28/18 21:48 Est GFR (Non-Af Amer) 17 (> 60) L 04/28/18 21:48 Glucose 150 mg/dL (70-105) H 04/28/18 21:48 POC Glucose 125 mg/dL (70-99) H 04/28/18 17:55 AST 9 Units/L (13-39) L 04/28/18 03:18 Lactate Dehydrogenase 138 Units/L (140-271) L 04/27/18 23:00 Albumin 3.3 g/dL (3.5-5.7) L 04/28/18 03:18 Albumin/Globulin Ratio 1.0 (1.1-2.2) L 04/28/18 03:18 Urine Clarity Cloudy (Clear) A 04/28/18 17:45 Urine Blood Moderate (Negative) H 04/28/18 17:45 Ur Squamous Epith Cells Many per lpf (None-Few) H 04/28/18 17:45 - Microbiology Findings Microbiology Findings: Microbiology, Last 48 Hours 04/27/18 23:40 Legionella Antigen - Final Urine,Clean Catch Streptococcus pneumoniae Antigen (M - Final 04/27/18 23:00 Blood Culture - Preliminary Peripheral Venipuncture Culture is incubating and being continuously monitored for growth. Final report to follow. 04/27/18 23:21 Blood Culture - Preliminary Peripheral Venipuncture Culture is incubating and being continuously monitored for growth. Final report to follow. - Clinical Findings Intake & Output: Intake & Output 04/28/18 04/29/18 04/29/18 23:59 07:59 15:59 Intake Total 720 / 720 127.6 / 127.6 Output Total 170 / 170 125 / 125 Balance 550 / 550 2.6 / 2.6 Weight 108.7 kg Consult Discharge Plan - Plan Referrals: Breann Brock MD [Primary Care Provider] -
[2018-04-29 08:24] LABS: Uric Acid 6.7 mg/dL (2.3-7.6)
[2018-04-29] MEDS ORDERED: Lidocaine Viscous Oral Soln 15 ML SOLUTION ONE (09:36)
--- NOTE | 2018-04-29 09:58 | Anesthesia Evaluation PreOp ---
Date of Encounter: 04/29/18 Time of Encounter: 10:00 - Past History Planned Operation: Bronchoscopy Cardiac History: HTN Pulmonary History: Smoker EDUCATION COORDINATOR History: Other (Migraines) Other Medical History: Other (Obese) Anesthesia History: No Prior Anesthetic Complications Alcohol Use: occasionally Drug use: none Medications and Allergies Metoprolol Succinate [Toprol Xl] 25 mg PO DAILY 04/27/18 [History] 3 Allergy/AdvReac Type Severity Reaction Status Date / Time No Known Allergies Allergy Verified 07/05/17 10:59 - Meds/Allergy Pre-op Review Medications Reviewed: Yes Allergies Reviewed: Yes Anesthesia Results - Labs 04/29/18 07:34 04/29/18 07:34 - Imaging Additional studies: ECHO EF 60%, no valvular dysfunction Anesthesia Exam O2 Sat Weight 108.7 kg O2 Sat by Pulse Oximetry 96 O2 Sat by Pulse Oximetry 97 O2 Sat by Pulse Oximetry 97 O2 Sat by Pulse Oximetry 95 O2 Sat by Pulse Oximetry 96 O2 Sat by Pulse Oximetry 96 O2 Sat by Pulse Oximetry 93 O2 Sat by Pulse Oximetry 93 O2 Sat by Pulse Oximetry 94 O2 Sat by Pulse Oximetry 92 O2 Sat by Pulse Oximetry 92 O2 Sat by Pulse Oximetry 95 O2 Sat by Pulse Oximetry 95 O2 Sat by Pulse Oximetry 92 O2 Sat by Pulse Oximetry 93 O2 Sat by Pulse Oximetry 95 O2 Sat by Pulse Oximetry 94 O2 Sat by Pulse Oximetry 97 O2 Sat by Pulse Oximetry 94 O2 Sat by Pulse Oximetry 97 O2 Sat by Pulse Oximetry 94 O2 Sat by Pulse Oximetry 96 O2 Sat by Pulse Oximetry 97 O2 Sat by Pulse Oximetry 95 O2 Sat by Pulse Oximetry 96 O2 Sat by Pulse Oximetry 96 O2 Sat by Pulse Oximetry 97 Vital Signs Temp Pulse Resp BP Pulse Ox 101.7 F H 134 34 133/88 95 04/27/18 22:00 04/27/18 22:00 04/27/18 22:00 04/27/18 22:00 04/27/18 22:00 Height: 5'6 Weight: 240 lbs NPO (# of Hours): MN Pain Scale: 0 - HEENT Pupil (Motor): Pupils equal, EOMI Mallampati: II Teeth: Normal Oral Opening: Greater than 3 - EDUCATION COORDINATOR LOC: Oriented EDUCATION COORDINATOR Motor: Normal RUE, Normal LUE, Normal RLE, Normal LLE, Normal Face EDUCATION COORDINATOR Sensory: Normal: RUE, LUE, RLE, LLE, Face - Cardiac Rhythm: Regular Murmur: None JVD: No Carotid Bruit: No - Pulmonary Breath Sounds: bilateral Clear Respiratory Effort: Symmetrical Anesthesia Assess/Plan ASA Score: 2 Modified [place] Scale for Level of Consciousness: Cooperative, oriented, and tranquil Anesthetic Plan: General, MAC Monitoring Plan: Standard Monitors Recovery Plan: ICU (Discussed MAC or General, agrees to proceed)
[2018-04-29] MEDS ORDERED: Lidocaine -MPF 2% 2 ML VIAL ONE (10:02)
[2018-04-29] MEDS ORDERED: *HR* FentaNYL (PF) 100 MCG/2 ML VIAL ONE (10:02)
[2018-04-29] MEDS ORDERED: *HR* Midazolam HCl 2 MG/2 ML VIAL ONE (10:02)
[2018-04-29] MEDS ORDERED: *HR* Propofol 200 MG/20 ML VIAL IVP ONE (10:02)
[2018-04-29] MEDS ORDERED: *HR* Succinylcholine 200 MG/10 ML VIAL IVP ONE (10:02)
[2018-04-29] MEDS ORDERED: Propofol 500 MG/50 ML INFUS..BTL ONE (10:03)
--- NOTE | 2018-04-29 12:18 | Nephrology Consult Note ---
Date of Encounter: 04/29/18 Time of Encounter: 10:30 Assessment and Plan (1) CHIDI (acute kidney injury) Status: Acute Oliguric CHIDI with renal risk factors: hx of pre-eclampsia/HTN (suggests possible baseline glomerulosclerosis though SCr was normal at baseline), Sepsis/PNA, NSAIDs (she chronically has been taking 2-3 IBU daily prior to admission), CTA with IV contrast exposure on 04/26/18, and slightly hypovolemic volume status). UA was without proteinuria, but dilute with +blood, but on microscopy there were no RBC casts or granular casts or even hyaline casts. Though the UA is not consistent with a Pulmonary Renal Syndrome, I agree with checking serologies such as ANCA, EDUARDO, complements, etc plus the plan for Bronch. I reviewed her outpt progress notes, recent notes and imaging from [facility], labs, vitals, med lists, progress notes, and based upon her current exam (she is not fluid overloaded per se, and no hyperkalemia, and no uremia on exam), I recommend holding off and not starting CLOTH GRADER today. Instead I would recommend correcting the hypovolemic volume status as has already been starting with Albumin infusions, and would recommend q8hr (for total of 3 today). Two have been ordered, so I'll add another for tonight. I also had an excellent, thorough discussion with her and her who was at the bedside regarding the current medical impressions and I described the indications/risks vs benefits and end had a nice review of the latest NEJM publication regarding CLOTH GRADER initation in early vs late critical situations. She and her voiced wan ting to try for the albumin/volume expansion today, as do I, but if she deteriorates or worsens by tomorrow, then CLOTH GRADER may be indicated after all. In the meantime, continue to follow a renal protective strategy, but avoiding any nephrotoxins such as NSAIDs, IV contrast, plus recording strict I/Os, daily weights, and dosing renally cleared Rx by CrCl or eGFR. Thank you for consulting the [facility]. CCT of chart prep, face to face interview/examine, family meeting about R/B/I and documentation of approximately [address] Mancuso will be on-call starting tomorrow at 8AM, and I will provide a thorough hand-off. Thank you. (2) Hematuria Status: Acute See above Qualifiers: Qualified Code(s): R31.9 - Hematuria, unspecified (3) Pneumonia Status: Acute See above Qualifiers: Pneumonia type: due to unspecified organism Laterality: bilateral Lung location: unspecified part of lung Qualified Code(s): J18.9 - Pneumonia, unspecified organism (4) Sepsis Status: Resolved See above Qualifiers: Sepsis type: sepsis due to unspecified organism Qualified Code(s): A41.9 - Sepsis, unspecified organism (5) Hypertension Status: Chronic Hold any DM or ARB. See above Qualifiers: Hypertension type: essential hypertension Qualified Code(s): I10 - Essential (primary) hypertension (6) Bilateral pneumonia Status: Acute Appreciate the ICU/Pulmonology team. Qualifiers: Pneumonia type: due to unspecified organism Lung location: unspecified part of lung Qualified Code(s): J18.9 - Pneumonia, unspecified organism History of Present Illness - Reason for Consult Consult date: 04/29/18 Acute Kidney Injury Requesting physician: Aramis Perez - Chief Complaint CHIDI - History of Present Illness Deirdre Krishnan is a very pleasant 28 y/o female with a pmh of pre- eclampsia, obesity, and recent tobacco daily use who presented with CHIDI. 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 She and her were both present in the ICU at [facility], and described how she developed a cough that progressed over about 1 week to PNA; she was admitted at [facility] and then transferred to [facility] d/t worsening hypoxia. There was concern for a possible pulmonary renal syndrome according to the primary team who paged me requesting consultation on Monday. She affirmed taking NSAIDs. FHx: no relatives with ESRD. Past Med Surg Social Fam HX - Past Medical History Medical history: hypertension, migraine, other Additional medical history: HTN+ Psychiatric history: anxiety - Past Surgical History Surgical History: other Additional surgical history: Tubal Ligation - Social History Smoking Status: Current every day smoker (Patient reports that she started smoking 3 weeks ago, has never smoked before this) Packs per day: 0.5 Smokeless Tobacco Status: No Alcohol use: occasionally Drug use: none - Family History Father Living Status: Still Living Mother Hx Family Cancer: Yes (cervical CA) Hx Family Endocrine Disorder: Yes (Diabetes) Medications and Allergies Metoprolol Succinate [Toprol Xl] 25 mg PO DAILY 04/27/18 [History] levoFLOXacin [Levaquin] 750 mg PO DAILY #2 tablet 05/04/18 [Rx] predniSONE [PredniSONE] See Taper PO DAILY 16 Days #40 tablet 05/04/18 [Rx] Allergy/AdvReac Type Severity Reaction Status Date / Time No Known Allergies Allergy Verified 07/05/17 10:59 Review of Systems All Systems: reviewed and no additional remarkable complaints except as stated Exam - Vital Signs Vital signs: Initial Vital Signs Temp Pulse Resp BP Pulse Ox 101.7 F H 134 34 133/88 95 04/27/18 22:00 04/27/18 22:00 04/27/18 22:00 04/27/18 22:00 04/27/18 22:00 Vital Signs - Last 8 Hours Temp Pulse Resp BP Pulse Ox 04/29/18 11:00 94 24 129/85 100 04/29/18 10:00 101 28 133/87 100 04/29/18 09:00 98 24 143/92 96 04/29/18 08:00 96.1 F L 80 26 130/91 97 04/29/18 07:00 57 26 126/74 97 04/29/18 06:00 68 28 138/82 95 04/29/18 05:00 60 28 126/83 96 04/29/18 04:38 30 96 04/29/18 04:14 68 Intake and Output 04/28/18 04/29/18 04/29/18 23:59 07:59 15:59 Intake Total 720 / 720 127.6 / 127.6 500 / 500 Output Total 170 / 170 125 / 125 150 / 150 Balance 550 / 550 2.6 / 2.6 350 / 350 Intake: IV Fluids 600 / 600 127.6 / 127.6 350 / 350 ALBURX 5% 12.5 gm In 250 ml @ 250 / 250 60 mls/hr IVC .Q4H10M [facility] Rx#: [id number] PRECEDEX Premix 400 mcg In 100 27.6 / 27.6 ml @ 0.2 MCG/KG/HR 5.39 mls/hr IVC .[id number] [facility] Rx#:[id number] Lactated Ringers 500 ML @ 1000 500 / 500 mls/hr IVC .Q30M [facility] Rx#: [id number] Zosyn 3.375 GM In 0.9 % Sodium 100 / 100 100 / 100 100 / 100 Chloride (Mini-Bag +) 100 ML @ 25 mls/hr IVPB Q8HR [facility] Rx#: [id number] Oral 120 / 120 150 / 150 Output: Catheter 170 / 170 125 / 125 150 / 150 Urethral (Hill) 0 / 0 Other: Weight 108.7 kg Blood Glucose* 125 Patient Weight 04/29/18 23:59 Weight 108.7 kg - General Appearance General appearance: well-developed, well-nourished, appears started age, obese EENT: ATNC, PERRL, mucous membranes moist Neck: supple Respiratory: rales, course breath sounds, rhonchi Cardiology: no edema, regular rate, regular rhythm, normal S1, normal S2 Gastrointestinal: normoactive bowel sounds, no tenderness, no guarding, obese Integumentary: no rash, warm and dry Neurologic: no focal deficit, no asterixis, alert and oriented x3 Musculoskeletal: no deformities, no erythema, no cyanosis (no cyanosis of the toes (I removed her socks to check and then replaced her socks). ), no clubbing Psychiatric: mood/affect appropriate, cooperative Results - Lab Results 05/04/18 11:46 05/04/18 04:42 Most recent lab results ABG pH 7.43 pH Units (7.32-7.45) 04/28/18 05:03 ABG pCO2 34 mmHg (35-45) L 04/28/18 05:03 ABG pO2 83 mmHg (85-104) L 04/28/18 05:03 ABG HCO3 23 mEq/L (21-27) 04/28/18 05:03 ABG O2 Saturation 97 % (95-98) 04/28/18 05:03 Calcium 8.7 mg/dL (8.6-10.3) 04/29/18 07:34 Magnesium 1.6 mg/dL (1.6-2.6) 04/28/18 03:18 I reviewed her labs, med list, vitals, imaging, progress notes, and imaging. Consult Discharge Plan - Plan Instructions: Acute Respiratory Distress Syndrome (DC), Sepsis (DC), Chronic Hypertension (DC), Pneumonia (DC) Additional Instructions: Follow-up appointments: If there is not an appointment listed below, please call your physician and schedule a follow-up appointment. If you have congestive heart failure and your symptoms return, make an appointment with your physician. Medication List: Carry an up to date list of medications you are taking at all time. We have given you an updated medication list including any new medications that you have been prescribed. Please provide that list to your primary provider Symptoms: If your condition changes or you experience any of the following symp toms, notify your physician immediately: Unusual or worsening pain, fever, persistent nausea and vomiting, bleeding, increase in swelling (especially in your legs), sudden weight gain, extreme dizziness, chest pain, increased drainage or redness from a wound or incision. Go to the emergency department if you experience a problem with breathing. Weights: If you have a history of swelling or shortness of breath, weigh yourself daily and notify your physician if you have a weight gain of two or more pounds in one day or 5 or more pounds in a week. If you experience any of the warning signs for stroke: Sudden numbness or weakness of the face, arm or leg; especially on one side of the body, sudden confusion, trouble speaking or understanding, sudden trouble seeing in one or both eyes, sudden trouble walking, dizziness, loss of balance or coordination, sudden sever headache with no cause; Call 911 or go to the emergency room. Stroke is a medical emergency. Some risk factors for stroke: Age, cigarette smoking, diabetes, excessive alcohol consumption, family history, high blood pressure, overweight, physical inactivity, prior stroke, heart attack, diagnosis of carotid artery stenosis or other artery disease. If you smoke, STOP: Smoking or tobacco use significantly increases your risk of heart and lung disease. Your chance of disease greatly increases if you continue to smoke. For more information, call the [place] tobacco quit line for smoking cessation 4-638-YXSK-NOW ( ) Referrals: Breann Brock MD [Primary Care Provider] - 05/15/18 1:30 pm Enid Martinez MD [Partnered Physician] - Prescriptions: levoFLOXacin [Levaquin] 750 mg PO DAILY #2 tablet predniSONE [PredniSONE] See Taper PO DAILY 16 Days #40 tablet
[2018-04-29] MEDS ORDERED: Tetracaine/Benzocaine/Butamben 1 SPRAY AEROSOL MM ONE (13:05)
[2018-04-29] MEDS ORDERED: Lidocaine Viscous Oral Soln 15 ML SOLUTION MM ONE (13:05)
[2018-04-29 15:25] LABS: Appearance of Body Fluid Cloudy (Clear); Volume of Body Fluid 23 mL
[2018-04-29] MEDS: *HR* Promethazine 25 MG/ML VIAL IVP PRN (16:15)
[2018-04-29] MEDS ORDERED: Levofloxacin 750 MG/150 ML 750 MG/150 ML BAG IVPB SCH (22:00)
[2018-04-30] MEDS: *HR* Promethazine 25 MG/ML VIAL IVP PRN ×2 (03:00→16:27)
[2018-04-30 03:20] LABS: Eosinophils # 0.2 K/mcL (0.0-0.6); Eosinophils % 1.5 %; Hematocrit 30.4 % (35.3-44.9); Immature Granulocytes % 0.3 % (0-4); Lymphocytes # 1.1 K/mcL (0.6-4.6); Lymphocytes % 7.9 %; Mean Corpuscular HGB Conc 31.6 g/dL (31.6-35.5); Mean Corpuscular Hemoglobin 23.6 pg (28.0-33.3); Mean Corpuscular Volume 74.9 fL (83.0-100.0); Mean Platelet Volume 10.9 fL (9.4-12.4); Monocytes # 0.6 K/mcL (0.0-1.3); Monocytes % 4.5 %; Neutrophils # 11.9 K/mcL (1.6-8.9); Platelet Count 276 K/mcL (140-400); Red Blood Count 4.06 M/mcL (3.82-4.97); Red Cell Distribution Width 15.8 % (11.5-14.5); Segmented Neutrophils % 85.8 %
[2018-04-30 03:21] LABS: Hemoglobin 9.6 g/dL (11.5-15.4)
[2018-04-30 03:25] LABS: INR 1.3; Prothrombin Time 14.1 Seconds (9.4-12.1)
[2018-04-30 03:40] LABS: Albumin 3.5 g/dL (3.5-5.7); Calcium 8.6 mg/dL (8.6-10.3); Magnesium 2.3 mg/dL (1.6-2.6); Phosphorous 5.6 mg/dL (2.7-4.5); Potassium 4.5 mEq/L (3.5-5.1)
[2018-04-30 04:23] LABS: Hepatitis A Antibody IgM Nonreactive (Nonreactive); Hepatitis B Core IgM Nonreactive (Nonreactive); Hepatitis B Surface Antigen Nonreactive (Nonreactive); Hepatitis C Virus Antibody Nonreactive (Nonreactive)
[2018-04-30] MEDS: MethylPREDNISolone 40 MG/ML VIAL IVP SCH ×2 (05:11→17:50)
[2018-04-30] MEDS: *HR* Heparin 5,000 UNIT/ML VIAL SQ SCH ×2 (05:11→17:49)
[2018-04-30] MEDS: Piperacillin/Tazobactam 3.375 GM in 0.9 % Sodium Chloride Mini Bag 100 ML IVPB SCH (07:23)
--- NOTE | 2018-04-30 08:27 | Pulmonology Progress Note ---
<Ryan Williamson - Last Filed: 04/30/18 11:27> Date of Encounter: 04/30/18 Time of Encounter: 07:15 Assessment and Plan (1) Acute respiratory failure Current Visit: Yes Status: Acute Acute respiratory failure in the setting of pneumonia, radiographic features of ARDS. Patient currently tolerating high flow nasal cannula oxygen. Did require BiPAP overnight. Patient currently reporting significant improvement in work of breathing and subjective shortness of breath. We will continue steroids and antibiotics. BiPAP available as needed for worsening respiratory status. Qualifiers: Respiratory failure complication: hypoxia Qualified Code(s): J96.01 - Acute respiratory failure with hypoxia (2) Bilateral pneumonia Current Visit: No Status: Acute Bilateral multifocal opacities on imaging, consistent with community-acquired pneumonia. Blood cultures negative growth to date, respiratory panel negative. Fungal studies pending. Patient did undergo bronchoscopy yesterday. Cultures and cytology pending. Autoimmune and inflammatory testing pending including: GBM IgG, ANCA, EDUARDO, CCP. We will continue steroids. De-escalate antibiotic therapy to Levaquin. Supplemental oxygenation as needed. Qualifiers: Pneumonia type: due to unspecified organism Lung location: unspecified part of lung Qualified Code(s): J18.9 - Pneumonia, unspecified organism (3) CHIDI (acute kidney injury) Current Visit: Yes Status: Acute Acute kidney injury since hospitalization. Patient denies history of prior renal conditions. Creatinine decreased slightly to 3.69 today, BUN elevating to 58 today. Nephrology consultation following, appreciate their recommendations. Due to stable potassium and uremia, renal replacement therapy was not initiated yesterday. Nephrology will reevaluate today for possible PROFESSOR OF THEATER. When patient will tolerate, diuresis will likely improve her respiratory status. (4) Hematuria Current Visit: Yes Status: Acute Hematuria identified on urinalysis. Nephrology consult of the following, patient their recommendations Qualifiers: Qualified Code(s): R31.9 - Hematuria, unspecified (5) DVT prophylaxis Current Visit: Yes Status: Acute Continue heparin 5000 units SQ Hemoglobin did decrease from 11.4-9.6 today. No evidence of ongoing bleeding. We will continue to follow Subjective Principal diagnosis: Pneumonia Interval history: Patient reporting significant improvement. Weaned from BiPAP to high flow nasal oxygen. Patient is sitting at the bedside eating breakfast. She does endorse lower extremity weakness. Objective PUL Vital signs: Last Vital Signs Temp 98.1 F 10/15/18 07:30 Pulse 61 04/30/18 08:00 Resp 24 04/30/18 08:00 BP 134/89 04/30/18 08:00 Pulse Ox 98 04/30/18 08:00 General appearance: no acute distress Eyes: nonicteric ENT: oropharynx moist Neck: supple, no lymphadenopathy Effort: mildly labored Auscultation: bilateral: rales (Bilateral lung bases) Cardiovascular: regular rate and rhythm Gastrointestinal: normoactive bowel sounds, soft, non-distended Integumentary: normal Extremities: no cyanosis, no edema, no clubbing Musculoskeletal: no deformities Gait: normal posture normal mental status, non-focal exam mood appropriate Results - Laboratory Findings CBC and BMP: 04/30/18 02:39 04/30/18 02:39 ABG ABG pH 7.43 pH Units (7.32-7.45) 04/28/18 05:03 ABG pCO2 34 mmHg (35-45) L 04/28/18 05:03 ABG pO2 83 mmHg (85-104) L 04/28/18 05:03 ABG O2 Saturation 97 % (95-98) 04/28/18 05:03 PT/INR, D-dimer PT 14.1 Seconds (9.4-12.1) H 04/30/18 02:39 Abnormal lab findings: Abnormal lab results WBC 13.9 K/mcL (4.3-11.1) H 04/30/18 02:39 Hgb 9.6 g/dL (11.5-15.4) L D 04/30/18 02:39 Hct 30.4 % (35.3-44.9) L 04/30/18 02:39 MCV 74.9 fL (83.0-100.0) L 04/30/18 02:39 MCH 23.6 pg (28.0-33.3) L 04/30/18 02:39 RDW 15.8 % (11.5-14.5) H 04/30/18 02:39 Neutrophils # 11.9 K/mcL (1.6-8.9) H 04/30/18 02:39 PT 14.1 Seconds (9.4-12.1) H 04/30/18 02:39 ABG pCO2 34 mmHg (35-45) L 04/28/18 05:03 ABG pO2 83 mmHg (85-104) L 04/28/18 05:03 Carbon Dioxide 21 mEq/L (23-29) L 04/30/18 02:39 BUN 58 mg/dL (6-20) H 04/30/18 02:39 Creatinine 3.69 mg/dL (0.60-1.20) H 04/30/18 02:39 Est GFR ( Amer) 18 (> 60) L 04/30/18 02:39 Est GFR (Non-Af Amer) 15 (> 60) L 04/30/18 02:39 Glucose 107 mg/dL (70-105) H 04/30/18 02:39 POC Glucose 117 mg/dL (70-99) H 04/29/18 23:11 Phosphorus 5.6 mg/dL (2.7-4.5) H 04/30/18 02:39 AST 9 Units/L (13-39) L 04/28/18 03:18 Lactate Dehydrogenase 138 Units/L (140-271) L 04/27/18 23:00 C-Reactive Protein 189 mg/L (Less than 10) H 04/29/18 07:34 Albumin/Globulin Ratio 1.0 (1.1-2.2) L 04/28/18 03:18 Urine Clarity Cloudy (Clear) A 04/28/18 17:45 Urine Blood Moderate (Negative) H 04/28/18 17:45 Ur Squamous Epith Cells Many per lpf (None-Few) H 04/28/18 17:45 Fluid Appearance Cloudy (Clear) A 04/29/18 Unknown - Microbiology Findings Microbiology Findings: Microbiology, Last 48 Hours 04/29/18 Unknown Respiratory Culture - Preliminary Right Middle Lobe Lung - Clinical Findings Intake & Output: Intake & Output 04/29/18 04/30/18 04/30/18 23:59 07:59 15:59 Intake Total 650 / 650 150 / 150 Output Total 750 / 750 1150 / 1150 Balance -100 / -100 -1000 / -1000 Weight 109.7 kg Consult Discharge Plan - Plan Referrals: Breann Brock MD [Primary Care Provider] - <Alison Read - Last Filed: 04/30/18 16:18> Date of Encounter: 04/30/18 Objective PUL Vital signs: Last Vital Signs Temp 98.1 F 04/30/18 07:30 Pulse 68 04/30/18 09:00 Resp 26 04/30/18 09:00 BP 130/86 04/30/18 09:00 Pulse Ox 99 04/30/18 09:00 Results - Laboratory Findings CBC and BMP: 04/30/18 02:39 04/30/18 02:39 ABG ABG pH 7.43 pH Units (7.32-7.45) 04/28/18 05:03 ABG pCO2 34 mmHg (35-45) L 04/28/18 05:03 ABG pO2 83 mmHg (85-104) L 04/28/18 05:03 ABG O2 Saturation 97 % (95-98) 04/28/18 05:03 PT/INR, D-dimer PT 14.1 Seconds (9.4-12.1) H 04/30/18 02:39 Abnormal lab findings: Abnormal lab results WBC 13.9 K/mcL (4.3-11.1) H 04/30/18 02:39 Hgb 9.6 g/dL (11.5-15.4) L D 04/30/18 02:39 Hct 30.4 % (35.3-44.9) L 04/30/18 02:39 MCV 74.9 fL (83.0-100.0) L 04/30/18 02:39 MCH 23.6 pg (28.0-33.3) L 04/30/18 02:39 RDW 15.8 % (11.5-14.5) H 04/30/18 02:39 Neutrophils # 11.9 K/mcL (1.6-8.9) H 04/30/18 02:39 PT 14.1 Seconds (9.4-12.1) H 04/30/18 02:39 ABG pCO2 34 mmHg (35-45) L 04/28/18 05:03 ABG pO2 83 mmHg (85-104) L 04/28/18 05:03 Carbon Dioxide 21 mEq/L (23-29) L 04/30/18 02:39 BUN 58 mg/dL (6-20) H 04/30/18 02:39 Creatinine 3.69 mg/dL (0.60-1.20) H 04/30/18 02:39 Est GFR ( Amer) 18 (> 60) L 04/30/18 02:39 Est GFR (Non-Af Amer) 15 (> 60) L 04/30/18 02:39 Glucose 107 mg/dL (70-105) H 04/30/18 02:39 POC Glucose 117 mg/dL (70-99) H 04/29/18 23:11 Phosphorus 5.6 mg/dL (2.7-4.5) H 04/30/18 02:39 AST 9 Units/L (13-39) L 04/28/18 03:18 Lactate Dehydrogenase 138 Units/L (140-271) L 04/27/18 23:00 C-Reactive Protein 189 mg/L (Less than 10) H 04/29/18 07:34 Albumin/Globulin Ratio 1.0 (1.1-2.2) L 04/28/18 03:18 Urine Clarity Cloudy (Clear) A 04/28/18 17:45 Urine Blood Moderate (Negative) H 04/28/18 17:45 Ur Squamous Epith Cells Many per lpf (None-Few) H 04/28/18 17:45 Fluid Appearance Cloudy (Clear) A 04/29/18 Unknown - Microbiology Findings Microbiology Findings: Microbiology, Last 48 Hours 04/29/18 Unknown Respiratory Culture - Preliminary Right Middle Lobe Lung - Clinical Findings Intake & Output: Intake & Output 04/29/18 04/30/18 04/30/18 23:59 07:59 15:59 Intake Total 650 / 650 150 / 150 Output Total 750 / 750 1150 / 1150 Balance -100 / -100 -1000 / -1000 Weight 109.7 kg - Attending Attestation I examined this patient and my medical decision-making was reviewed with the Resident Physician. I agree with the documented findings, disposition and treatment plan as described except to the extent set forth below. Patient seen and examined. Labs, radiology, chart personally reviewed. Agree with resident's history and physical, assessment, plan with following comments: TELE TECH: Patient follows commands, Pulmonary: Acceptable oxygenation and ventilation and change to high flow and able to move to out of bed to chair. s/p bronch and culture is pending. It is still not clear exactly etiology, however she seems to be responding to current treatment. Cardiovascular: stable GI: Nutrition per dietary and GI prophylaxis per routine Heme: DVT prophylaxis per routine ID: Continue antibiotics and plan to de-escalation. Renal; urine out put and renal funtion reviewed. Nephrology follow up and if possible to diures if nephrology agrees. Renal biopsy? Endorcine: blood glucose is monitored. Continue steroid. Lines: all lines checked and no evidence of infections Skin: skin care to prevent pressure ulcers per nursing routine care Discussed with patient and family at the bedside.
--- NOTE | 2018-04-30 11:18 | Electrocardiograph Report ---
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
[2018-04-30] MEDS: Dexmedetomidine HCl 400 MCG/100 ML MLS IVC SCH (16:28)
--- NOTE | 2018-04-30 22:57 | Nephrology Progress Note ---
Date of Encounter: 04/30/18 Time of Encounter: 10:45 - Assessment and Plan (1) CHIDI (acute kidney injury) Current Visit: Yes Status: Acute Oliguric CHIDI with renal risk factors: hx of pre-eclampsia/HTN (suggests possible baseline glomerulosclerosis though SCr was normal at baseline), Sepsis/ PNA, NSAIDs (she chronically has been taking 2-3 IBU daily prior to admission), CTA with IV contrast exposure on 04/26/18, and slightly hypovolemic volume status). UA was without proteinuria, but dilute with +blood, but on microscopy there were no RBC casts or granular casts or even hyaline casts. Though the UA is not consistent with a Pulmonary Renal Syndrome, I agree with checking serologies such as ANCA, EDUARDO, complements, etc plus the plan for Bronch. In the meantime, continue to follow a renal protective strategy, but avoiding any nephrotoxins such as NSAIDs, IV contrast, plus recording strict I/Os, daily weights, and dosing renally cleared Rx by CrCl or eGFR. Renal function improving with decreased creatinine and increasing urine output. Will follow for now. (2) Bilateral pneumonia Current Visit: No Status: Acute Qualifiers: Pneumonia type: due to unspecified organism Lung location: unspecified part of lung Qualified Code(s): J18.9 - Pneumonia, unspecified organism (3) Pneumonia Current Visit: Yes Status: Acute Qualifiers: Pneumonia type: due to unspecified organism Laterality: bilateral Lung location: unspecified part of lung Qualified Code(s): J18.9 - Pneumonia, unspecified organism (4) Sepsis Current Visit: Yes Status: Acute Qualifiers: Sepsis type: sepsis due to unspecified organism Qualified Code(s): A41.9 - Sepsis, unspecified organism (5) Hypertension Current Visit: Yes Status: Chronic Qualifiers: Hypertension type: essential hypertension Qualified Code(s): I10 - Essential (primary) hypertension (6) Hematuria Current Visit: Yes Status: Acute Qualifiers: Qualified Code(s): R31.9 - Hematuria, unspecified Subjective Principal diagnosis: Pneumonia Interval history: Patient seen. She is sitting in a chair. She states she feels slightly better. Objective - Vital Signs Vital signs: Vital Signs Temp Pulse Resp BP Pulse Ox 04/30/18 22:00 52 21 137/92 97 04/30/18 21:26 99.1 F 04/30/18 21:06 67 20 134/80 100 04/30/18 20:00 68 18 123/96 99 04/30/18 19:40 61 04/30/18 19:00 52 22 132/76 100 04/30/18 18:00 50 20 135/67 97 04/30/18 17:00 58 26 137/72 100 04/30/18 16:00 68 30 133/77 99 04/30/18 15:40 98.1 F 04/30/18 15:00 62 26 138/84 99 04/30/18 14:00 63 24 135/84 97 04/30/18 13:00 58 26 125/75 100 04/30/18 12:00 68 20 130/86 99 04/30/18 11:00 75 24 135/90 97 04/30/18 10:00 61 20 131/84 100 04/30/18 09:00 68 26 130/86 99 04/30/18 08:00 60 24 134/89 98 04/30/18 07:30 98.1 F 04/30/18 07:00 66 20 135/85 98 04/30/18 06:02 49 13 138/85 99 04/30/18 05:00 50 21 115/72 96 04/30/18 03:54 47 24 124/84 96 04/30/18 03:46 26 124/84 99 04/30/18 03:11 62 04/30/18 03:00 98.7 F 62 20 127/76 97 04/30/18 02:00 50 25 121/64 95 04/30/18 01:04 59 27 117/66 99 04/30/18 00:00 97.6 F 56 22 112/59 98 04/29/18 23:06 60 04/29/18 23:00 58 27 121/73 98 Intake and Output 04/30/18 04/30/18 04/30/18 07:59 15:59 23:59 Intake Total 150 / 150 100 / 100 240 / 240 Output Total 1150 / 1150 950 / 950 550 / 550 Balance -1000 / -1000 -850 / -850 -310 / -310 Intake: IV Fluids 150 / 150 100 / 100 Levaquin Premix 750mg/150 mL 150 / 150 750 mg In 150 ml @ 100 mls/hr IVPB Q48H [facility] Rx#:[id number] Zosyn 3.375 GM In 0.9 % Sodium 100 / 100 Chloride (Mini-Bag +) 100 ML @ 25 mls/hr IVPB Q12H [facility] Rx#: [id number] Oral 240 / 240 Output: Catheter 1150 / 1150 950 / 950 550 / 550 Other: Meal Lunch Dinner Percent of Meal Consumed 50% 20% Stool Size Moderate Moderate Small Stool Consistency liquid loose soft Stool Color Brown Brown Brown # Bowel Movements 1 1 Weight 109.7 kg Blood Glucose* 117 Patient Weight 04/30/18 23:59 Weight 109.7 kg - General Appearance General appearance: Present: well-developed, well-nourished EENT: Present: ATNC Neck: Present: supple Respiratory: Present: course breath sounds Cardiology: Present: regular rate Integumentary: Present: warm and dry Musculoskeletal: Present: no cyanosis Psychiatric: Present: mood/affect appropriate - Lab 04/30/18 02:39 04/30/18 02:39 Most recent lab results ABG pH 7.43 pH Units (7.32-7.45) 04/28/18 05:03 ABG pCO2 34 mmHg (35-45) L 04/28/18 05:03 ABG pO2 83 mmHg (85-104) L 04/28/18 05:03 ABG HCO3 23 mEq/L (21-27) 04/28/18 05:03 ABG O2 Saturation 97 % (95-98) 04/28/18 05:03 Calcium 8.6 mg/dL (8.6-10.3) 04/30/18 02:39 Phosphorus 5.6 mg/dL (2.7-4.5) H 04/30/18 02:39 Magnesium 2.3 mg/dL (1.6-2.6) 04/30/18 02:39 Consult Discharge Plan - Plan Referrals: Breann Brock MD [Primary Care Provider] -
[2018-05-01 03:42] LABS: Basophils % 0.2 %; Eosinophils # 0.3 K/mcL (0.0-0.6); Eosinophils % 2.1 %; Hematocrit 30.9 % (35.3-44.9); Hemoglobin 9.8 g/dL (11.5-15.4); Immature Granulocytes % 0.7 % (0-4); Lymphocytes # 1.6 K/mcL (0.6-4.6); Lymphocytes % 13.3 %; Mean Corpuscular HGB Conc 31.7 g/dL (31.6-35.5); Mean Corpuscular Hemoglobin 23.9 pg (28.0-33.3); Mean Corpuscular Volume 75.4 fL (83.0-100.0); Mean Platelet Volume 10.7 fL (9.4-12.4); Monocytes # 0.8 K/mcL (0.0-1.3); Monocytes % 6.6 %; Neutrophils # 9.3 K/mcL (1.6-8.9); Platelet Count 274 K/mcL (140-400); Red Cell Distribution Width 15.8 % (11.5-14.5); Segmented Neutrophils % 77.1 %
[2018-05-01 04:04] LABS: Calcium 8.8 mg/dL (8.6-10.3); Magnesium 2.3 mg/dL (1.6-2.6); Phosphorous 4.7 mg/dL (2.7-4.5); Potassium 4.6 mEq/L (3.5-5.1)
[2018-05-01] MEDS: MethylPREDNISolone 40 MG/ML VIAL IVP SCH ×2 (06:02→18:01)
[2018-05-01] MEDS: *HR* Heparin 5,000 UNIT/ML VIAL SQ SCH ×2 (06:02→18:06)
[2018-05-01] MEDS: *HR* Promethazine 25 MG/ML VIAL IVP PRN (06:21)
[2018-05-01 08:39] LABS: Mycoplasma pneumoniae IgG 0.09 U/L (<=0.09)
--- NOTE | 2018-05-01 09:14 | Pulmonology Progress Note ---
<Alison Read M - Last Filed: 05/01/18 14:09> Date of Encounter: 05/01/18 Objective PUL Vital signs: Last Vital Signs Temp 98.7 F 05/01/18 12:39 Pulse 72 05/01/18 13:00 Resp 22 05/01/18 13:00 BP 140/84 05/01/18 13:00 Pulse Ox 100 05/01/18 13:00 Results - Laboratory Findings CBC and BMP: 05/01/18 03:23 05/01/18 03:23 ABG ABG pH 7.43 pH Units (7.32-7.45) 04/28/18 05:03 ABG pCO2 34 mmHg (35-45) L 04/28/18 05:03 ABG pO2 83 mmHg (85-104) L 04/28/18 05:03 ABG O2 Saturation 97 % (95-98) 04/28/18 05:03 PT/INR, D-dimer PT 14.1 Seconds (9.4-12.1) H 04/30/18 02:39 Abnormal lab findings: Abnormal lab results WBC 12.1 K/mcL (4.3-11.1) H 05/01/18 03:23 Hgb 9.8 g/dL (11.5-15.4) L 05/01/18 03:23 Hct 30.9 % (35.3-44.9) L 05/01/18 03:23 MCV 75.4 fL (83.0-100.0) L 05/01/18 03:23 MCH 23.9 pg (28.0-33.3) L 05/01/18 03:23 RDW 15.8 % (11.5-14.5) H 05/01/18 03:23 Neutrophils # 9.3 K/mcL (1.6-8.9) H 05/01/18 03:23 PT 14.1 Seconds (9.4-12.1) H 04/30/18 02:39 ABG pCO2 34 mmHg (35-45) L 04/28/18 05:03 ABG pO2 83 mmHg (85-104) L 04/28/18 05:03 Sodium 134 mEq/L (136-145) L 05/01/18 03:23 Carbon Dioxide 21 mEq/L (23-29) L 05/01/18 03:23 BUN 61 mg/dL (6-20) H 05/01/18 03:23 Creatinine 2.71 mg/dL (0.60-1.20) H 05/01/18 03:23 Est GFR ( Amer) 26 (> 60) L 05/01/18 03:23 Est GFR (Non-Af Amer) 21 (> 60) L 05/01/18 03:23 Glucose 127 mg/dL (70-105) H 05/01/18 03:23 POC Glucose 137 mg/dL (70-99) H 04/30/18 23:49 Phosphorus 4.7 mg/dL (2.7-4.5) H 05/01/18 03:23 AST 9 Units/L (13-39) L 04/28/18 03:18 Lactate Dehydrogenase 138 Units/L (140-271) L 04/27/18 23:00 C-Reactive Protein 189 mg/L (Less than 10) H 04/29/18 07:34 Albumin/Globulin Ratio 1.0 (1.1-2.2) L 04/28/18 03:18 Urine Clarity Cloudy (Clear) A 04/28/18 17:45 Urine Blood Moderate (Negative) H 04/28/18 17:45 Ur Squamous Epith Cells Many per lpf (None-Few) H 04/28/18 17:45 Fluid Appearance Cloudy (Clear) A 04/29/18 Unknown - Microbiology Findings Microbiology Findings: Microbiology, Last 48 Hours 04/29/18 Unknown Respiratory Culture - Final Right Middle Lobe Lung 04/29/18 Unknown Acid Fast Stain - Final Right Middle Lobe Lung - Clinical Findings Intake & Output: Intake & Output 04/30/18 05/01/18 05/01/18 23:59 07:59 15:59 Intake Total 240 / 240 Output Total 550 / 550 925 / 925 750 / 750 Balance -310 / -310 -925 / -925 -750 / -750 Weight 109.7 kg Consult Discharge Plan - Plan Referrals: Breann Brock MD [Primary Care Provider] - - Attending Attestation I examined this patient and my medical decision-making was reviewed with the Resident Physician. I agree with the documented findings, disposition and treatment plan as described except to the extent set forth below. Patient seen and examined. Labs, radiology, chart personally reviewed. Agree with resident's history and physical, assessment, plan with following comments: [employer]PER[employer]OR: Patient follows commands, Pulmonary: Acceptable oxygenation and ventilation. There is improvement and patient is still requiring noninvasive ventilation alternating with high flow oxygen will continue current treatment as long as patient is improving 2 [facility]. then we will transfer patient to [facility]. Cardiovascular: stable GI: Nutrition per dietary and GI prophylaxis per routine. Patient with moderate to severe protein calorie malnutrition and encourage patient to eat as dietary recommended and she has better appetite at this time. Heme: DVT prophylaxis per routine ID: Continue antibiotics and plan to de-escalation Renal; urine out put and renal funtion reviewed. There is improvement in renal function. Endorcine: blood glucose is monitored Lines: all lines checked and no evidence of infections Skin: skin care to prevent pressure ulcers per nursing routine care <Salomon Sparks - Last Filed: 05/01/18 17:36> Date of Encounter: 05/01/18 Time of Encounter: 15:56 Assessment and Plan (1) Acute respiratory failure Current Visit: Yes Status: Acute Acute respiratory failure in the setting of pneumonia, radiographic features of ARDS. Antibiotic coverage D escalated to levofloxacin Patient currently tolerating BiPAP with alternation to high flow nasal cannula. Patient currently reporting significant improvement in work of breathing and subjective shortness of breath. We will continue steroids and antibiotics. Patient transfer order placed for [facility]. Qualifiers: Respiratory failure complication: hypoxia Qualified Code(s): J96.01 - Acute respiratory failure with hypoxia (2) Pneumonia Current Visit: Yes Status: Acute Bilateral multifocal opacities on imaging, consistent with community-acquired pneumonia. Blood cultures negative growth to date, respiratory panel negative. Fungal studies pending. Patient did undergo bronchoscopy 2 days ago. Cultures and cytology pending. Autoimmune and inflammatory testing pending including: GBM IgG, ANCA, EDUARDO, CCP. Qualifiers: Pneumonia type: due to unspecified organism Laterality: bilateral Lung location: unspecified part of lung Qualified Code(s): J18.9 - Pneumonia, unspecified organism (3) CHIDI (acute kidney injury) Current Visit: Yes Status: Acute Acute kidney injury identified during hospitalization-patient denies history of renal disease Creatinine down today to 2.71 from 3.69 yesterday, BUN is slightly elevated to 61 from 58 yesterday. Hematuria been found on urinalysis. Nephrology consulted and is following-will guide potential for renal replacement therapy. Consider gentle diuresis as kidney function improves, to improve respiratory status. (4) DVT prophylaxis Current Visit: Yes Status: Acute 5000 units subcutaneous heparin 3 times a day Subjective Principal diagnosis: Pneumonia Interval history: Patient is a 28-year-old female with a history of hypertension that presents to [facility] ICU with shortness of breath and cough. Patient states on Monday night she felt lightheadedness with fatigue that resulted in a syncopal episode. Fatigue carried on into the next day with the patient developed shortness of breath and fever. Patient was seen at [place] emergency department where she was diagnosed with pneumonia. Patient was admitted to the hospital where she continued gradually developing cough as well as worsening shortness of breath with accessory muscle use. Patient also complains of continued fever and intermittent nausea. Patient is currently able to rest on BiPAP alternating with high flow nasal [place] oxygen. There is currently no acute distress, patient is alert and oriented, answering questions appropriately. Objective PUL Vital signs: Last Vital Signs Temp 97.1 F L 05/01/18 08:00 Pulse 49 05/01/18 08:35 Resp 20 05/01/18 08:00 BP 151/104 05/01/18 08:00 Pulse Ox 99 05/01/18 08:00 General appearance: no acute distress, alert Eyes: nonicteric ENT: oropharynx moist Effort: normal Auscultation: bilateral: clear Cardiovascular: regular rate and rhythm Gastrointestinal: normoactive bowel sounds, soft, non-tender, non-distended Integumentary: normal Extremities: no cyanosis, no edema non-focal exam Results - Laboratory Findings CBC and BMP: 05/01/18 03:23 05/01/18 03:23 ABG ABG pH 7.43 pH Units (7.32-7.45) 04/28/18 05:03 ABG pCO2 34 mmHg (35-45) L 04/28/18 05:03 ABG pO2 83 mmHg (85-104) L 04/28/18 05:03 ABG O2 Saturation 97 % (95-98) 04/28/18 05:03 PT/INR, D-dimer PT 14.1 Seconds (9.4-12.1) H 04/30/18 02:39 Abnormal lab findings: Abnormal lab results WBC 12.1 K/mcL (4.3-11.1) H 05/01/18 03:23 Hgb 9.8 g/dL (11.5-15.4) L 05/01/18 03:23 Hct 30.9 % (35.3-44.9) L 05/01/18 03:23 MCV 75.4 fL (83.0-100.0) L 05/01/18 03:23 MCH 23.9 pg (28.0-33.3) L 05/01/18 03:23 RDW 15.8 % (11.5-14.5) H 05/01/18 03:23 Neutrophils # 9.3 K/mcL (1.6-8.9) H 05/01/18 03:23 PT 14.1 Seconds (9.4-12.1) H 04/30/18 02:39 ABG pCO2 34 mmHg (35-45) L 04/28/18 05:03 ABG pO2 83 mmHg (85-104) L 04/28/18 05:03 Sodium 134 mEq/L (136-145) L 05/01/18 03:23 Carbon Dioxide 21 mEq/L (23-29) L 05/01/18 03:23 BUN 61 mg/dL (6-20) H 05/01/18 03:23 Creatinine 2.71 mg/dL (0.60-1.20) H 05/01/18 03:23 Est GFR ( Amer) 26 (> 60) L 05/01/18 03:23 Est GFR (Non-Af Amer) 21 (> 60) L 05/01/18 03:23 Glucose 127 mg/dL (70-105) H 05/01/18 03:23 POC Glucose 137 mg/dL (70-99) H 04/30/18 23:49 Phosphorus 4.7 mg/dL (2.7-4.5) H 05/01/18 03:23 AST 9 Units/L (13-39) L 04/28/18 03:18 Lactate Dehydrogenase 138 Units/L (140-271) L 04/27/18 23:00 C-Reactive Protein 189 mg/L (Less than 10) H 04/29/18 07:34 Albumin/Globulin Ratio 1.0 (1.1-2.2) L 04/28/18 03:18 Urine Clarity Cloudy (Clear) A 04/28/18 17:45 Urine Blood Moderate (Negative) H 04/28/18 17:45 Ur Squamous Epith Cells Many per lpf (None-Few) H 04/28/18 17:45 Fluid Appearance Cloudy (Clear) A 04/29/18 Unknown - Microbiology Findings Microbiology Findings: Microbiology, Last 48 Hours 04/29/18 Unknown Respiratory Culture - Preliminary Right Middle Lobe Lung - Clinical Findings Intake & Output: Intake & Output 04/30/18 05/01/18 05/01/18 23:59 07:59 15:59 Intake Total 240 / 240 Output Total 550 / 550 925 / 925 400 / 400 Balance -310 / -310 -925 / -925 -400 / -400 Weight 109.7 kg
--- NOTE | 2018-05-01 13:09 | Nephrology Progress Note ---
Date of Encounter: 05/01/18 Time of Encounter: 13:09 - Assessment and Plan (1) CHIDI (acute kidney injury) Current Visit: Yes Status: Acute Oliguric CHIDI with renal risk factors: hx of pre-eclampsia/HTN (suggests possible baseline glomerulosclerosis though SCr was normal at baseline), Sepsis/ PNA, NSAIDs (she chronically has been taking 2-3 IBU daily prior to admission), CTA with IV contrast exposure on 04/26/18, and slightly hypovolemic volume status). Renal function improving with decreased creatinine and increasing urine output. Will follow for now. (2) Bilateral pneumonia Current Visit: No Status: Acute Qualifiers: Pneumonia type: due to unspecified organism Lung location: unspecified part of lung Qualified Code(s): J18.9 - Pneumonia, unspecified organism (3) Pneumonia Current Visit: Yes Status: Acute Qualifiers: Pneumonia type: due to unspecified organism Laterality: bilateral Lung location: unspecified part of lung Qualified Code(s): J18.9 - Pneumonia, unspecified organism (4) Sepsis Current Visit: Yes Status: Acute Qualifiers: Sepsis type: sepsis due to unspecified organism Qualified Code(s): A41.9 - Sepsis, unspecified organism (5) Hypertension Current Visit: Yes Status: Chronic Qualifiers: Hypertension type: essential hypertension Qualified Code(s): I10 - Essential (primary) hypertension (6) Hematuria Current Visit: Yes Status: Acute Qualifiers: Qualified Code(s): R31.9 - Hematuria, unspecified Subjective Principal diagnosis: Pneumonia Interval history: Patient seen. She is sitting in a chair. She states she feels slightly better. Objective - Vital Signs Vital signs: Vital Signs Temp Pulse Resp BP Pulse Ox 05/01/18 12:39 98.7 F 05/01/18 10:00 55 18 125/87 99 05/01/18 09:00 51 19 149/84 98 05/01/18 08:35 49 05/01/18 08:00 97.1 F L 49 20 151/104 99 05/01/18 07:00 42 18 144/90 99 05/01/18 06:00 43 14 124/72 98 05/01/18 05:00 44 20 118/68 98 05/01/18 04:33 97.7 F 05/01/18 04:00 45 21 120/77 98 05/01/18 03:51 24 125/78 100 05/01/18 03:25 47 05/01/18 03:00 44 19 149/92 98 05/01/18 02:00 47 20 156/93 100 05/01/18 01:00 44 14 144/90 98 05/01/18 00:09 97.6 F 05/01/18 00:00 46 20 134/75 99 04/30/18 23:39 43 04/30/18 23:31 18 135/92 99 04/30/18 23:00 48 21 114/72 98 04/30/18 22:00 52 21 137/92 97 04/30/18 21:26 99.1 F 04/30/18 21:06 67 20 134/80 100 04/30/18 20:00 68 18 123/96 99 04/30/18 19:40 61 04/30/18 19:00 52 22 132/76 100 04/30/18 18:00 50 20 135/67 97 04/30/18 17:00 58 26 137/72 100 04/30/18 16:00 68 30 133/77 99 04/30/18 15:40 98.1 F 04/30/18 15:00 62 26 138/84 99 04/30/18 14:00 63 24 135/84 97 Intake and Output 04/30/18 05/01/18 05/01/18 23:59 07:59 15:59 Intake Total 240 / 240 Output Total 550 / 550 925 / 925 750 / 750 Balance -310 / -310 -925 / -925 -750 / -750 Intake: Oral 240 / 240 Output: Catheter 550 / 550 925 / 925 750 / 750 Other: Meal Dinner Percent of Meal Consumed 20% Stool Size Small Moderate Stool Consistency soft loose Stool Color Brown Brown Weight 109.7 kg Blood Glucose* 137 232 Patient Weight 05/01/18 23:59 Weight 109.7 kg - Lab 05/01/18 03:23 05/01/18 03:23 Most recent lab results ABG pH 7.43 pH Units (7.32-7.45) 04/28/18 05:03 ABG pCO2 34 mmHg (35-45) L 04/28/18 05:03 ABG pO2 83 mmHg (85-104) L 04/28/18 05:03 ABG HCO3 23 mEq/L (21-27) 04/28/18 05:03 ABG O2 Saturation 97 % (95-98) 04/28/18 05:03 Calcium 8.8 mg/dL (8.6-10.3) 05/01/18 03:23 Phosphorus 4.7 mg/dL (2.7-4.5) H 05/01/18 03:23 Magnesium 2.3 mg/dL (1.6-2.6) 05/01/18 03:23 Consult Discharge Plan - Plan Referrals: Breann Brock MD [Primary Care Provider] -
[2018-05-01] MEDS ORDERED: Benzonatate 100 MG CAPSULE PO PRN (19:30)
[2018-05-01] MEDS ORDERED: Acetaminophen 650 MG RECTAL SUPP RC PRN (19:30)
[2018-05-01] MEDS ORDERED: Naloxone 0.4 MG/ML INJ IVP PRN (19:30)
[2018-05-01] MEDS ORDERED: *HR* OxyCODONE/APAP 5/325 TABLET PO PRN (19:30)
[2018-05-01] MEDS ORDERED: Levofloxacin 750 MG/150 ML 750 MG/150 ML BAG IVPB SCH (22:00)
[2018-05-02] MEDS: *HR* Promethazine 25 MG/ML VIAL IVP PRN ×2 (05:05→22:22)
[2018-05-02] MEDS: *HR* Heparin 5,000 UNIT/ML VIAL SQ SCH ×2 (05:05→17:36)
[2018-05-02 05:11] LABS: Basophils % 0.2 %; Eosinophils # 0.4 K/mcL (0.0-0.6); Eosinophils % 2.7 %; Hematocrit 33.1 % (35.3-44.9); Hemoglobin 10.7 g/dL (11.5-15.4); Immature Granulocytes % 1.5 % (0-4); Lymphocytes # 1.9 K/mcL (0.6-4.6); Lymphocytes % 14.2 %; Mean Corpuscular HGB Conc 32.3 g/dL (31.6-35.5); Mean Corpuscular Hemoglobin 23.9 pg (28.0-33.3); Mean Corpuscular Volume 73.9 fL (83.0-100.0); Mean Platelet Volume 10.3 fL (9.4-12.4); Monocytes # 0.9 K/mcL (0.0-1.3); Monocytes % 7.1 %; Neutrophils # 9.7 K/mcL (1.6-8.9); Platelet Count 290 K/mcL (140-400); Red Blood Count 4.48 M/mcL (3.82-4.97); Red Cell Distribution Width 15.4 % (11.5-14.5); Segmented Neutrophils % 74.3 %
[2018-05-02 05:29] LABS: Potassium 4.8 mEq/L (3.5-5.1)
[2018-05-02] MEDS ORDERED: MethylPREDNISolone 40 MG/ML VIAL IVP SCH (06:00)
[2018-05-02 07:28] LABS: Complement Component 3 147 mg/dL (88-201); Complement Component 4 20 mg/dL (10-40)
--- NOTE | 2018-05-02 10:00 | Nephrology Progress Note ---
Date of Encounter: 05/02/18 Time of Encounter: 09:58 - Assessment and Plan (1) CHIDI (acute kidney injury) Current Visit: Yes Status: Acute Oliguric CHIDI with renal risk factors: hx of pre-eclampsia/HTN (suggests possible baseline glomerulosclerosis though SCr was normal at baseline), Sepsis/ PNA, NSAIDs (she chronically has been taking 2-3 IBU daily prior to admission), CTA with IV contrast exposure on 04/26/18, and slightly hypovolemic volume status). Renal function improving with decreased creatinine and increasing urine output. Will follow for now. I anticipate full recovery. (2) Bilateral pneumonia Current Visit: No Status: Acute Qualifiers: Pneumonia type: due to unspecified organism Lung location: unspecified part of lung Qualified Code(s): J18.9 - Pneumonia, unspecified organism (3) Pneumonia Current Visit: Yes Status: Acute Qualifiers: Pneumonia type: due to unspecified organism Laterality: bilateral Lung location: unspecified part of lung Qualified Code(s): J18.9 - Pneumonia, unspecified organism (4) Sepsis Current Visit: Yes Status: Acute Qualifiers: Sepsis type: sepsis due to unspecified organism Qualified Code(s): A41.9 - Sepsis, unspecified organism (5) Hypertension Current Visit: Yes Status: Chronic Qualifiers: Hypertension type: essential hypertension Qualified Code(s): I10 - Essential (primary) hypertension (6) Hematuria Current Visit: Yes Status: Acute Qualifiers: Qualified Code(s): R31.9 - Hematuria, unspecified Subjective Principal diagnosis: Pneumonia Interval history: Patient seen. She is sitting in a chair. She states she feels slightly better. Objective - Vital Signs Vital signs: Vital Signs Temp Pulse Resp BP Pulse Ox 05/02/18 07:52 44 17 144/84 97 05/02/18 07:50 98.1 F 05/02/18 07:00 42 05/02/18 04:14 97.4 F L 05/02/18 04:00 40 19 132/86 99 05/02/18 03:43 40 05/02/18 03:36 17 128/82 98 05/02/18 00:16 44 19 128/82 98 05/02/18 00:03 98.3 F 05/01/18 23:18 59 05/01/18 21:30 19 99 05/01/18 20:46 98.4 F 05/01/18 20:30 63 25 125/68 96 05/01/18 20:00 63 05/01/18 18:00 56 18 124/73 100 05/01/18 17:00 60 20 134/69 100 05/01/18 16:00 97.5 F L 56 20 143/80 100 05/01/18 15:41 49 20 133/77 99 05/01/18 14:00 58 20 134/82 100 05/01/18 13:00 72 22 140/84 100 05/01/18 12:39 98.7 F 05/01/18 12:00 62 22 132/83 99 05/01/18 10:00 55 18 125/87 99 Intake and Output 05/01/18 05/02/18 05/02/18 23:59 07:59 15:59 Intake Total 390 / 390 Output Total 1300 / 1300 1800 / 1800 300 / 300 Balance -910 / -910 -1800 / -1800 -300 / -300 Intake: IV Fluids 150 / 150 Levaquin Premix 750mg/150 mL 150 / 150 750 mg In 150 ml @ 100 mls/hr IVPB Q48H [facility] Rx#:[id number] Oral 240 / 240 Output: Catheter 1300 / 1300 1800 / 1800 300 / 300 Other: Stool Size Small Stool Consistency loose soft Stool Characteristics Normal for Patient Stool Color Brown Weight 109.7 kg Blood Glucose* 136 Patient Weight 05/02/18 23:59 Weight 109.7 kg - General Appearance General appearance: Present: well-developed, well-nourished EENT: Present: ATNC Cardiology: Present: regular rate Integumentary: Present: warm and dry Neurologic: Present: alert and oriented x3 Psychiatric: Present: mood/affect appropriate - Lab 05/02/18 04:55 05/02/18 04:55 Most recent lab results ABG pH 7.43 pH Units (7.32-7.45) 04/28/18 05:03 ABG pCO2 34 mmHg (35-45) L 04/28/18 05:03 ABG pO2 83 mmHg (85-104) L 04/28/18 05:03 ABG HCO3 23 mEq/L (21-27) 04/28/18 05:03 ABG O2 Saturation 97 % (95-98) 04/28/18 05:03 Calcium 9.0 mg/dL (8.6-10.3) 05/02/18 04:55 Phosphorus 4.7 mg/dL (2.7-4.5) H 05/01/18 03:23 Magnesium 2.3 mg/dL (1.6-2.6) 05/01/18 03:23 Consult Discharge Plan - Plan Referrals: Breann Brock MD [Primary Care Provider] -
--- NOTE | 2018-05-02 10:42 | Pulmonology Progress Note ---
<Salomon Sparks - Last Filed: 05/02/18 11:49> Date of Encounter: 05/02/18 Time of Encounter: 11:49 Assessment and Plan (1) Acute respiratory failure Current Visit: Yes Status: Acute Acute respiratory failure in the setting of pneumonia, radiographic features of ARDS. Antibiotic coverage de-escalated to levofloxacin (currently day 4) Patient currently tolerating nasal cannula at 3 L/m. Patient currently reporting significant improvement in work of breathing and subjective shortness of breath. Continue levofloxacin. Patient transitioned from IV Solu-Medrol to prednisone taper 40 mg dose Transfer placed for patient to telemetry unit Qualifiers: Respiratory failure complication: hypoxia Qualified Code(s): J96.01 - Acute respiratory failure with hypoxia (2) Pneumonia Current Visit: Yes Status: Acute Bilateral multifocal opacities on imaging, consistent with community-acquired pneumonia. Blood cultures negative growth to date, respiratory panel negative. Fungal studies pending. Patient did undergo bronchoscopy 2 days ago. Cultures and cytology negative Rheumatoid factor, complement C3/C4, and viral panel negative Qualifiers: Pneumonia type: due to unspecified organism Laterality: bilateral Lung location: unspecified part of lung Qualified Code(s): J18.9 - Pneumonia, unspecified organism (3) CHIDI (acute kidney injury) Current Visit: Yes Status: Acute Acute kidney injury identified during hospitalization-patient denies history of renal disease Creatinine down today to 1.63, down from 2.71 yesterday, BUN is trending downward to 45 from 61 yesterday. Hematuria been found on urinalysis. Nephrology consulted and is following-will guide potential for renal replacement therapy. Consider gentle diuresis as kidney function improves, to improve respiratory status. (4) DVT prophylaxis Current Visit: Yes Status: Acute 5000 units subcutaneous heparin 3 times a day Subjective Principal diagnosis: Pneumonia Interval history: Patient is a 28-year-old female with a history of hypertension that presents to [facility] ICU with shortness of breath and cough. Patient states on the night of 04/25/2018 she felt lightheaded with fatigue that resulted in a syncopal episode. Fatigue carried on into the next day with the patient developing shortness of breath and fever. Patient was seen at [place] emergency department where she was diagnosed with pneumonia. Patient was admitted to the hospital where she continued gradually developing co ugh as well as worsening shortness of breath with accessory muscle use. Patient also complains of continued fever and intermittent nausea. Patient was examined today sitting upright in chair next to hospital bed, alert and oriented, engaged to conversation and answering questions appropriately. H er mood and affect appear normal. There is no increased work of breathing and she is speaking in full sentences on 3 L nasal cannula with oxygen saturations at 94%. Objective PUL Vital signs: Last Vital Signs Temp 98.1 F 05/02/18 07:50 Pulse 59 05/02/18 10:00 Resp 19 05/02/18 10:00 BP 144/84 05/02/18 07:52 Pulse Ox 94 05/02/18 10:00 General appearance: no acute distress, alert Eyes: nonicteric ENT: oropharynx moist Effort: normal Auscultation: bilateral: clear Cardiovascular: regular rate and rhythm Gastrointestinal: normoactive bowel sounds, soft, non-tender, non-distended Integumentary: normal Extremities: no cyanosis normal mental status, non-focal exam mood appropriate, affect normal Results - Laboratory Findings CBC and BMP: 05/02/18 04:55 05/02/18 04:55 ABG ABG pH 7.43 pH Units (7.32-7.45) 04/28/18 05:03 ABG pCO2 34 mmHg (35-45) L 04/28/18 05:03 ABG pO2 83 mmHg (85-104) L 04/28/18 05:03 ABG O2 Saturation 97 % (95-98) 04/28/18 05:03 PT/INR, D-dimer PT 14.1 Seconds (9.4-12.1) H 04/30/18 02:39 Abnormal lab findings: Abnormal lab results WBC 13.0 K/mcL (4.3-11.1) H 05/02/18 04:55 Hgb 10.7 g/dL (11.5-15.4) L 05/02/18 04:55 Hct 33.1 % (35.3-44.9) L 05/02/18 04:55 MCV 73.9 fL (83.0-100.0) L 05/02/18 04:55 MCH 23.9 pg (28.0-33.3) L 05/02/18 04:55 RDW 15.4 % (11.5-14.5) H 05/02/18 04:55 Neutrophils # 9.7 K/mcL (1.6-8.9) H 05/02/18 04:55 PT 14.1 Seconds (9.4-12.1) H 04/30/18 02:39 ABG pCO2 34 mmHg (35-45) L 04/28/18 05:03 ABG pO2 83 mmHg (85-104) L 04/28/18 05:03 Carbon Dioxide 21 mEq/L (23-29) L 05/02/18 04:55 BUN 45 mg/dL (6-20) H 05/02/18 04:55 Creatinine 1.63 mg/dL (0.60-1.20) H 05/02/18 04:55 Est GFR ( Amer) 46 (> 60) L 05/02/18 04:55 Est GFR (Non-Af Amer) 38 (> 60) L 05/02/18 04:55 BUN/Creatinine Ratio 28 (6-26) H 05/02/18 04:55 Glucose 123 mg/dL (70-105) H 05/02/18 04:55 POC Glucose 128 mg/dL (70-99) H 05/01/18 23:37 Phosphorus 4.7 mg/dL (2.7-4.5) H 05/01/18 03:23 AST 9 Units/L (13-39) L 04/28/18 03:18 Lactate Dehydrogenase 138 Units/L (140-271) L 04/27/18 23:00 C-Reactive Protein 189 mg/L (Less than 10) H 04/29/18 07:34 Albumin/Globulin Ratio 1.0 (1.1-2.2) L 04/28/18 03:18 Urine Clarity Cloudy (Clear) A 04/28/18 17:45 Urine Blood Moderate (Negative) H 04/28/18 17:45 Ur Squamous Epith Cells Many per lpf (None-Few) H 04/28/18 17:45 Fluid Appearance Cloudy (Clear) A 04/29/18 Unknown - Microbiology Findings Microbiology Findings: Microbiology, Last 48 Hours 04/29/18 Unknown Respiratory Culture - Final Right Middle Lobe Lung 04/29/18 Unknown Acid Fast Stain - Final Right Middle Lobe Lung - Clinical Findings Intake & Output: Intake & Output 05/01/18 05/02/18 05/02/18 23:59 07:59 15:59 Intake Total 390 / 390 Output Total 1300 / 1300 1800 / 1800 300 / 300 Balance -910 / -910 -1800 / -1800 -300 / -300 Weight 109.7 kg Consult Discharge Plan - Plan Referrals: Breann Brock MD [Primary Care Provider] - <Alison Read - Last Filed: 05/02/18 13:42> Date of Encounter: 05/02/18 Objective PUL Vital signs: Last Vital Signs Temp 98.1 F 05/02/18 07:50 Pulse 76 05/02/18 11:51 Resp 16 05/02/18 11:51 BP 149/83 05/02/18 11:51 Pulse Ox 97 05/02/18 11:51 Results - Laboratory Findings CBC and BMP: 05/02/18 04:55 05/02/18 04:55 ABG ABG pH 7.43 pH Units (7.32-7.45) 04/28/18 05:03 ABG pCO2 34 mmHg (35-45) L 04/28/18 05:03 ABG pO2 83 mmHg (85-104) L 04/28/18 05:03 ABG O2 Saturation 97 % (95-98) 04/28/18 05:03 PT/INR, D-dimer PT 14.1 Seconds (9.4-12.1) H 04/30/18 02:39 Abnormal lab findings: Abnormal lab results WBC 13.0 K/mcL (4.3-11.1) H 05/02/18 04:55 Hgb 10.7 g/dL (11.5-15.4) L 05/02/18 04:55 Hct 33.1 % (35.3-44.9) L 05/02/18 04:55 MCV 73.9 fL (83.0-100.0) L 05/02/18 04:55 MCH 23.9 pg (28.0-33.3) L 05/02/18 04:55 RDW 15.4 % (11.5-14.5) H 05/02/18 04:55 Neutrophils # 9.7 K/mcL (1.6-8.9) H 05/02/18 04:55 PT 14.1 Seconds (9.4-12.1) H 04/30/18 02:39 ABG pCO2 34 mmHg (35-45) L 04/28/18 05:03 ABG pO2 83 mmHg (85-104) L 04/28/18 05:03 Carbon Dioxide 21 mEq/L (23-29) L 05/02/18 04:55 BUN 45 mg/dL (6-20) H 05/02/18 04:55 Creatinine 1.63 mg/dL (0.60-1.20) H 05/02/18 04:55 Est GFR ( Amer) 46 (> 60) L 05/02/18 04:55 Est GFR (Non-Af Amer) 38 (> 60) L 05/02/18 04:55 BUN/Creatinine Ratio 28 (6-26) H 05/02/18 04:55 Glucose 123 mg/dL (70-105) H 05/02/18 04:55 POC Glucose 128 mg/dL (70-99) H 05/01/18 23:37 Phosphorus 4.7 mg/dL (2.7-4.5) H 05/01/18 03:23 AST 9 Units/L (13-39) L 04/28/18 03:18 Lactate Dehydrogenase 138 Units/L (140-271) L 04/27/18 23:00 C-Reactive Protein 189 mg/L (Less than 10) H 04/29/18 07:34 Albumin/Globulin Ratio 1.0 (1.1-2.2) L 04/28/18 03:18 Urine Clarity Cloudy (Clear) A 04/28/18 17:45 Urine Blood Moderate (Negative) H 04/28/18 17:45 Ur Squamous Epith Cells Many per lpf (None-Few) H 04/28/18 17:45 Fluid Appearance Cloudy (Clear) A 04/29/18 Unknown - Microbiology Findings Microbiology Findings: Microbiology, Last 48 Hours 04/29/18 Unknown Respiratory Culture - Final Right Middle Lobe Lung 04/29/18 Unknown Acid Fast Stain - Final Right Middle Lobe Lung - Clinical Findings Intake & Output: Intake & Output 05/01/18 05/02/18 05/02/18 23:59 07:59 15:59 Intake Total 390 / 390 360 / 360 Output Total 1300 / 1300 1800 / 1800 500 / 500 Balance -910 / -910 -1800 / -1800 -140 / -140 Weight 109.7 kg - Attending Attestation I examined this patient and my medical decision-making was reviewed with the Resident Physician. I agree with the documented findings, disposition and treatment plan as described except to the extent set forth below. Patient seen and examined. Labs, radiology, chart personally reviewed. 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 We will transition systemic steroid to oral prednisone and hopefully can be stopped quickly. Still not clear exactly what happened the patient and brought differential diagnosis could be a viral infection and less likely inflammatory lung disease. Cardiovascular: stable GI: Nutrition per dietary and GI prophylaxis per routine Heme: DVT prophylaxis per routine ID: Continue antibiotics and plan to de-escalation Renal; urine out put and renal funtion reviewed. There is improvement in renal function. Endorcine: blood glucose is monitored Lines: all lines checked and no evidence of infections Skin: skin care to prevent pressure ulcers per nursing routine care Awaiting the transferred to the floor.
[2018-05-02 15:52] LABS: BronchAsperGalactomannan Index 0.11
--- NOTE | 2018-05-02 15:52 | Internal Med Progress Note ---
Hospitalist Progress Note - Encounter Date of Encounter: 05/02/18 Time of Encounter: 15:52 - Subjective Interval History: Pt states she is still having loose stools once in a while. She denies fever, chills, N/V. She denies CP or SOB. - Exam Vitals: Temp Pulse Resp BP Pulse Ox 98.3 F 56 16 132/75 97 05/02/18 15:25 05/02/18 15:25 05/02/18 15:25 05/02/18 15:25 05/02/18 15:25 Exam: General appearance: Present: mild distress, A&O X 3, answers questions appropriately Exam: Patient appears to be in respiratory distress, using accessory muscles. She is awake, alert and mentating appropriately and answering questions appropriately. - Head Head exam: Present: atraumatic, normal inspection, normocephalic - Eye Eye exam: Present: EOMI, PERRL - ENT ENT exam: Present: mucous membranes moist, normal oropharynx - Neck Neck exam general surgery: Present: full ROM, supple - Respiratory Respiratory exam: Present: Lungs clear, no use of accessory muscle, Absent: wheezes, rhonchi, and crackles - Cardiovascular Cardiovascular exam: Present: +S1, +S2, tachycardia. Absent: gallop, irregular rhythm, rubs, systolic murmur - GI/Abdominal GI/Abdominal exam: Present: normal bowel sounds, soft, tenderness (mild epigastric). Absent: distended - Extremities Exam Extremities exam: Present: warm, radial pulses palpable and symmetrical. Absent : pedal edema, tenderness - Neurological Exam Neurological exam: Present: alert, CN II-XII intact, oriented X3, no focal deficits - Psychiatric Psychiatric exam: Present: anxious, normal affect, normal mood - Skin Skin exam: Present: dry, intact, warm - Assessment and Plan (1) Pneumonia Current Visit: Yes Status: Acute Assessment and Plan: Evidence of multifocal pneumonia on chest x-ray and CT. She is being treated for community acquired pneumonia with Rocephin and Zithromax, given patient's worsening clinical status during ICU admission her antibiotic regmimen was broaded to vancomycin, Zosyn, and Levaquin. Repeat blood cultures, no growth so far. Sputum culture no growth, strep and Legionella urinary antigen neg. MRSA nasal swab pending, respiratory infection neg, mycoplasma serologies reviewed. (2) Sepsis Current Visit: Yes Status: Acute Assessment and Plan: Secondary to pneumonia. Patient presented yesterday and received 3L fluid bolus. Lactic acid normal on admission. BP stable at this time. Repeat lactate now, Blood cultures drawn on admission, will repeat now. Hold off on any more fluid administration this time as patient is normotensive. Will closely monitor. (3) Acute respiratory failure Current Visit: Yes Status: Acute Assessment and Plan: Pt was having respiratory distress switch hypoxia hence why she was in ICU. She was on BiPAP and did not require intubation. She denies prior hx of Asthma or COPD that she is aware of. Pulmonology following. Vitals more stable, afebrile and tolerating RA. Will transfer to [facility] when bed available. Chest x ray XR/XR chest 1V portable IMPRESSION: Significant increased left lower lobe atelectasis or pneumonia. Bilateral airspace disease is otherwise improved. (4) Hypertension Current Visit: Yes Status: Chronic Assessment and Plan: History of HTN. Patient currently normo-tensive. Metoprolol was held given concern for sepsis. BP going up again. Will resume BP medications. Metoprolol 25 mg PO daily. DVT Prophylaxis: Heparin 5000 units subcutaneous twice a day. - Summary of Assessment and Plan Summary of Assessment and Plan: Ms. Krishnan is a 28 year old female with history of hypertension presents with shortness of breath and cough. Patient states on Monday she felt lightheadedness, fatigue, and had a syncopal episode. She continued to feel fatigued and then yesterday on she developed shortness of breath and felt feverish. At that point she presented to [place] emergency department where she was diagnosed with pneumonia and admitted to the hospital. Patient states while admitted to the hospital she continued to feel worse this morning developed a cough and had worsening shortness of breath. She reports having a hard time breathing and using her abdominal muscles to breathe which is causing her pain and fatigue. She reports continued fevers and intermittent nausea. She denies recent upper respiratory illness, sore throat, chest pain, vomiting, diarrhea or dysuria, lower extremity swelling, pain in her extremities. - Time Spent with Patient Total time spent is greater than 50% in coordination of care (as documented) at patient's floor/unit and/or counseling patient: less than 15 minutes Plan of Care Discussed with: patient Internal Medicine: Result - Labs CBC & Chem 7: 05/02/18 04:55 05/02/18 04:55 Labs: Short CBC 05/02/18 Range/Units 04:55 WBC 13.0 H (4.3-11.1) K/mcL Hgb 10.7 L (11.5-15.4) g/dL Hct 33.1 L (35.3-44.9) % Plt Count 290 (140-400) K/mcL Neutrophils # 9.7 H (1.6-8.9) K/mcL BMP 05/02/18 04:55 Sodium 136 Potassium 4.8 Chloride 106 Carbon Dioxide 21 L BUN 45 H Creatinine 1.63 H Glucose 123 H Calcium 9.0 - ABG Interpretation ABG results: ABG ABG pH 7.43 pH Units (7.32-7.45) 04/28/18 05:03 ABG pCO2 34 mmHg (35-45) L 04/28/18 05:03 ABG pO2 83 mmHg (85-104) L 04/28/18 05:03 ABG O2 Saturation 97 % (95-98) 04/28/18 05:03 PT/INR, D-dimer PT 14.1 Seconds (9.4-12.1) H 04/30/18 02:39 - Impressions Impressions Chest X-Ray 05/02/18 06:01 IMPRESSION: Significant increased left lower lobe atelectasis or pneumonia. Bilateral airspace disease is otherwise improved. D/ / Roger Paul MD / Roger Paul MD Interpreting Provider: Roger Paul MD Consult Discharge Plan - Plan Referrals: Breann Brock MD [Primary Care Provider] - (1) Pneumonia Qualifiers: Pneumonia type: due to unspecified organism Laterality: bilateral Lung location: unspecified part of lung Qualified Code(s): J18.9 - Pneumonia, unspecified organism (2) Sepsis Qualifiers: Sepsis type: sepsis due to unspecified organism Qualified Code(s): A41.9 - Sepsis, unspecified organism (3) Acute respiratory failure Qualifiers: Respiratory failure complication: hypoxia Qualified Code(s): J96.01 - Acute respiratory failure with hypoxia (4) Hypertension Qualifiers: Hypertension type: essential hypertension Qualified Code(s): I10 - Essential (primary) hypertension
[2018-05-02 18:26] LABS: APTT (LE Anticoag) 44 sec (32-48); Diluted Russell Viper Venom 35 sec (33-44); PT (LE-Anticoag) 15.3 sec (12.0-15.5)
[2018-05-02] MEDS: levoFLOXacin 750 MG TABLET PO SCH (21:03)
[2018-05-02] MEDS ORDERED: Levofloxacin 750 MG/150 ML 750 MG/150 ML BAG IVPB SCH (22:00)
[2018-05-03 03:33] LABS: HSV Source BAL RML
[2018-05-03] MEDS ORDERED: predniSONE 20 MG TABLET PO SCH (09:00)
[2018-05-03 09:42] LABS: Influenza A PCR Body Fluid NOT DETECTED; Influenza B PCR Body Fluid NOT DETECTED; RVP Body Fluid Source BAL RML
--- NOTE | 2018-05-03 12:07 | Internal Med Progress Note ---
<Latricia Lopez - Last Filed: 05/03/18 15:11> Hospitalist Progress Note - Encounter Date of Encounter: 05/03/18 Time of Encounter: 09:15 - Subjective Interval History: Patient seen and examined. No acute events overnight. Patient is resting comfortably in bed. Patient states she feels lightheaded and nauseous this morning. Admits cough productive of clear sputum with activity. Admits shortness of breath with exertion. Denies chest pain. Denies abdominal pain. Denies swelling. - Exam Vitals: Temp Pulse Resp BP Pulse Ox 98.7 F 58 16 136/84 98 05/03/18 00:40 05/03/18 00:40 05/03/18 00:40 05/03/18 00:40 05/03/18 00:40 Exam: General: Alert and oriented x3. No acute distress. Head: atraumatic, normocephalic. Eye: pupils equal and round. Sclera anicteric. EOMI. Mouth: oral mucosa moist. Normal oropharynx. Neck: supple. Trachea midline. Lungs: CTAB. No rhonchi, rales or wheezing. No respiratory distress. No accessory muscle use. Wet cough. Cardiovascular: Normal S1 & S2. No rubs or gallops. No JVD. Pulse regular. Abdomen: Normal bowel sounds. Nontender. No guarding, no rigidity, no rebound. Extremities: No joint swelling, edema, or clubbing. Nontender. Tremor in upper extremities. Skin: warm, dry, and intact. - Assessment and Plan (1) Pneumonia Current Visit: Yes Status: Acute Assessment and Plan: Multifocal pneumonia on chest x-ray and CT. Was treated for community acquired pneumonia with Rocephin and Zithromax. Clinical status worsened in ICU, and antibiotic regimen broadened to vancomycin, Zosyn, and Levaquin. Strep pneumoniae and Legionella were negative. Influenza negative. Rapid strep was negative. MRSA screen was negative. Respiratory panel was negative. Blood cultures drawn 04/26 were negative. Blood cultures drawn 04/27 were negative. Bronchoscopy was negative. Improved. Transferred from ICU to floor on 05/02. Antibiotics de-escalated to Levaquin. Continue Day 7 of Levaquin. (2) Sepsis Current Visit: Yes Status: Acute Assessment and Plan: Met SIRS criteria with fever, tachycardia, tachypnea, and leukocytosis. Lactic acid normal. Source: multifocal pneumonia See above. Resolved. (3) Acute respiratory failure Current Visit: Yes Status: Acute Assessment and Plan: Secondary to multifocal pneumonia and ARDS. No history of asthma or COPD. Was treated with BiPAP and did not require intubation. Improved. On 4L nasal cannula. Wean down as tolerated. Continue steroids and antibiotics. Pulmonology consulted and following. (4) Hypertension Current Visit: Yes Status: Chronic Assessment and Plan: History of HTN. Patient was normotensive. Metoprolol was held given sepsis. BP remaining stable ~130/80. (5) CHIDI (acute kidney injury) Current Visit: Yes Status: Acute Assessment and Plan: Likely multifactorial, including sepsis, chronic NSAID use, IV contrast, Lasix, history of preeclampsia/HTN. On 04/29, Cr elevated at 3.81. Downtrending. On 05/02, Cr 1.63. Renal function improving. Continue to monitor. Nephrology consulted and following. DVT Prophylaxis: Heparin 5000 units subcutaneous twice a day. - Time Spent with Patient Total time spent is greater than 50% in coordination of care (as documented) at patient's floor/unit and/or counseling patient: Internal Medicine: Result - Labs CBC & Chem 7: 05/02/18 04:55 05/02/18 04:55 - ABG Interpretation ABG results: ABG ABG pH 7.43 pH Units (7.32-7.45) 04/28/18 05:03 ABG pCO2 34 mmHg (35-45) L 04/28/18 05:03 ABG pO2 83 mmHg (85-104) L 04/28/18 05:03 ABG O2 Saturation 97 % (95-98) 04/28/18 05:03 PT/INR, D-dimer PT 14.1 Seconds (9.4-12.1) H 04/30/18 02:39 Consult Discharge Plan - Plan Referrals: Breann Brock MD [Primary Care Provider] - <Amairani Chavez - Last Filed: 05/03/18 15:53> Hospitalist Progress Note - Exam Vitals: Temp Pulse Resp BP Pulse Ox 97.8 F 90 20 126/84 95 05/03/18 14:25 05/03/18 14:25 05/03/18 14:25 05/03/18 14:25 05/03/18 14:25 - Assessment and Plan (1) Pneumonia Current Visit: Yes Status: Acute (2) Sepsis Current Visit: Yes Status: Acute (3) Acute respiratory failure Current Visit: Yes Status: Acute (4) Hypertension Current Visit: Yes Status: Chronic (5) CHIDI (acute kidney injury) Current Visit: Yes Status: Acute - Time Spent with Patient Total time spent is greater than 50% in coordination of care (as documented) at patient's floor/unit and/or counseling patient: Internal Medicine: Result - Labs CBC & Chem 7: 05/02/18 04:55 05/02/18 04:55 - ABG Interpretation ABG results: ABG ABG pH 7.43 pH Units (7.32-7.45) 04/28/18 05:03 ABG pCO2 34 mmHg (35-45) L 04/28/18 05:03 ABG pO2 83 mmHg (85-104) L 04/28/18 05:03 ABG O2 Saturation 97 % (95-98) 04/28/18 05:03 PT/INR, D-dimer PT 14.1 Seconds (9.4-12.1) H 04/30/18 02:39 - Attending Attestation I examined this patient and my medical decision-making was reviewed with the Resident Physician Dr Lopez. I agree with the documented findings, disposition and treatment plan as described except to the extent set forth below. Ms Krishnan presented with pna, resp failure and chidi. She had respiratory decline c/w ards picture which required broadened iv abx and bipap and is now stable on O2 nc and abx de escalated. CHIDI improving. Pulm and nephro following. Awake, feeling tired, lightheaded and nasueated this morning. denies fevers or chills. + cough, + wheezing at times, non e currently, + sputum production. gen- alert, awake,appears stated age, fatigued appearing cv- reg rate and rhythm, normal s1,s2, no murmurs appreciated, no le edema lungs- ctabl, no wheezing, rhonchi or crackles, diminished posteriorly, normal resp effort on o2 nc abd- soft, non tender, non distended, + bs neuro- AAOx3 Multifocal pna, organism unknown -cont levaquin, steroid, weaning o2 nc, nebs -cxr 10/17 with increased lll atelectasis vs pna, otherwise bilateral airspace disease improved -pulm following Acute Resp Failure- improving, cont with supplemental o2 nc and wean as able, cont pna treatment, pulm following -echo with normal ef and no significant findings CHIDI, improving- avoid nephro toxins , renal dose meds, nephro following, renal us c/w underlying parenchymal disease HTN, stable, home med held in setting of sepsis, cont to monitor <Latricia Lopez - Last Filed: 05/03/18 15:11> (1) Pneumonia Qualifiers: Pneumonia type: due to unspecified organism Laterality: bilateral Lung location: unspecified part of lung Qualified Code(s): J18.9 - Pneumonia, unspecified organism (2) Sepsis Qualifiers: Sepsis type: sepsis due to unspecified organism Qualified Code(s): A41.9 - Sepsis, unspecified organism (3) Acute respiratory failure Qualifiers: Respiratory failure complication: hypoxia Qualified Code(s): J96.01 - Acute respiratory failure with hypoxia (4) Hypertension Qualifiers: Hypertension type: essential hypertension Qualified Code(s): I10 - Essential (primary) hypertension <Amairani Chavez - Last Filed: 05/03/18 15:53> (1) Pneumonia Qualifiers: Pneumonia type: due to unspecified organism Laterality: bilateral Lung location: unspecified part of lung Qualified Code(s): J18.9 - Pneumonia, unspecified organism (2) Sepsis Qualifiers: Sepsis type: sepsis due to unspecified organism Qualified Code(s): A41.9 - Sepsis, unspecified organism (3) Acute respiratory failure Qualifiers: Respiratory failure complication: hypoxia Qualified Code(s): J96.01 - Acute respiratory failure with hypoxia (4) Hypertension Qualifiers: Hypertension type: essential hypertension Qualified Code(s): I10 - Essential (primary) hypertension
--- NOTE | 2018-05-03 13:02 | Pulmonology Progress Note ---
<Bert Rodriguez - Last Filed: 05/03/18 18:55> Date of Encounter: 05/03/18 Time of Encounter: 09:45 Assessment and Plan (1) Acute respiratory failure with hypoxia Current Visit: Yes Status: Acute -Resolving patient is status post ICU stay, currently on levofloxacin day 5. She satting at 98%. She feels better now patient endorses significant improvement in breathing and shortness of breath and she will continue the seven-day course of Levaquin. -She has been transitioned from IV Solu-Medrol to prednisone . Patient needs to be tapered off steroids because of concerns for acute eosinophilic pneumonia given her history of smoking intermittently. (2) Pneumonia Current Visit: Yes Status: Acute -She had bilateral multifocal opacities on imaging which is consistent with pneumonia.- -Her cultures were negative her respiratory infection panel, Legionella and stre p pneumo Antigen test were negative -Underwent bronchoscopy 2 days ago which was negative for any cyto-pathology. 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 Her Creatitine has been trending down currently at 1.50. -Urine output seems to be progressively increasing. - Nephrology is on board. Subjective Principal diagnosis: Pneumonia Interval history: Ms Swan Is a 28 y.o female who was transferred from [facility] to [facility] floor because of Right Upper Lobe pneumonia and was stepped down to the floor after completing a 6 day stay at the ICU where she was on BiPAP. Her CXR showed an ARDS like picture . Patient was inititally on Vancomycin and Zosyn but was deescalated to Levaquin. Currently, she is on day 5 of levaqun for a total of 7 days. Her Resp Infection panel, legionella and strep pneumo panel was negative. Currently awaiting Lupus studies (anti EDUARDO) . Patient's repeat chest x-ray showed significant increased left lower lobe atelectasis or pneumonia. She was at the bedside. Endorses no acute shortness of breath, chest pain and palpitation. Continues to be on 3 L cannula satting at 98%. Objective PUL Vital signs: Last Vital Signs Temp 98.7 F 05/03/18 00:40 Pulse 58 05/03/18 00:40 Resp 16 05/03/18 00:40 BP 136/84 05/03/18 00:40 Pulse Ox 98 05/03/18 00:40 General appearance: no acute distress Effort: normal Auscultation: bilateral: clear Percussion: bilateral: not dull Cardiovascular: regular rate and rhythm Gastrointestinal: soft, non-tender, non-distended Extremities: no cyanosis, no edema, no clubbing mood appropriate Results - Laboratory Findings CBC and BMP: 05/03/18 09:54 05/03/18 09:54 ABG ABG pH 7.43 pH Units (7.32-7.45) 04/28/18 05:03 ABG pCO2 34 mmHg (35-45) L 04/28/18 05:03 ABG pO2 83 mmHg (85-104) L 04/28/18 05:03 ABG O2 Saturation 97 % (95-98) 04/28/18 05:03 PT/INR, D-dimer PT 14.1 Seconds (9.4-12.1) H 04/30/18 02:39 Abnormal lab findings: Abnormal lab results WBC 13.0 K/mcL (4.3-11.1) H 05/02/18 04:55 Hgb 10.7 g/dL (11.5-15.4) L 05/02/18 04:55 Hct 33.1 % (35.3-44.9) L 05/02/18 04:55 MCV 73.9 fL (83.0-100.0) L 05/02/18 04:55 MCH 23.9 pg (28.0-33.3) L 05/02/18 04:55 RDW 15.4 % (11.5-14.5) H 05/02/18 04:55 Neutrophils # 9.7 K/mcL (1.6-8.9) H 05/02/18 04:55 PT 14.1 Seconds (9.4-12.1) H 04/30/18 02:39 ABG pCO2 34 mmHg (35-45) L 04/28/18 05:03 ABG pO2 83 mmHg (85-104) L 04/28/18 05:03 Carbon Dioxide 21 mEq/L (23-29) L 05/02/18 04:55 BUN 45 mg/dL (6-20) H 05/02/18 04:55 Creatinine 1.63 mg/dL (0.60-1.20) H 05/02/18 04:55 Est GFR ( Amer) 46 (> 60) L 05/02/18 04:55 Est GFR (Non-Af Amer) 38 (> 60) L 05/02/18 04:55 BUN/Creatinine Ratio 28 (6-26) H 05/02/18 04:55 Glucose 123 mg/dL (70-105) H 05/02/18 04:55 POC Glucose 129 mg/dL (70-99) H 05/02/18 20:17 Phosphorus 4.7 mg/dL (2.7-4.5) H 05/01/18 03:23 AST 9 Units/L (13-39) L 04/28/18 03:18 Lactate Dehydrogenase 138 Units/L (140-271) L 04/27/18 23:00 C-Reactive Protein 189 mg/L (Less than 10) H 04/29/18 07:34 Albumin/Globulin Ratio 1.0 (1.1-2.2) L 04/28/18 03:18 Urine Clarity Cloudy (Clear) A 04/28/18 17:45 Urine Blood Moderate (Negative) H 04/28/18 17:45 Ur Squamous Epith Cells Many per lpf (None-Few) H 04/28/18 17:45 Fluid Appearance Cloudy (Clear) A 04/29/18 Unknown - Microbiology Findings Microbiology Findings: Microbiology, Last 48 Hours 04/27/18 23:00 Blood Culture - Final Peripheral Venipuncture No growth. Final report. 04/27/18 23:21 Blood Culture - Final Peripheral Venipuncture No growth. Final report. 04/29/18 Unknown Respiratory Culture - Final Right Middle Lobe Lung 04/29/18 Unknown Acid Fast Stain - Final Right Middle Lobe Lung - Clinical Findings Intake & Output: Intake & Output 10/17/18 10/18/18 10/18/18 23:59 07:59 15:59 Intake Total 680 / 680 Balance 680 / 680 Weight 108 kg Consult Discharge Plan - Plan Referrals: Breann Brock MD [Primary Care Provider] - <Enid Martinez - Last Filed: 05/03/18 20:48> Objective PUL Vital signs: Last Vital Signs Temp 97.8 F 05/03/18 14:25 Pulse 90 05/03/18 14:25 Resp 20 05/03/18 14:25 BP 126/84 05/03/18 14:25 Pulse Ox 95 05/03/18 14:25 Results - Laboratory Findings CBC and BMP: 05/03/18 09:54 05/03/18 09:54 ABG ABG pH 7.43 pH Units (7.32-7.45) 04/28/18 05:03 ABG pCO2 34 mmHg (35-45) L 04/28/18 05:03 ABG pO2 83 mmHg (85-104) L 04/28/18 05:03 ABG O2 Saturation 97 % (95-98) 04/28/18 05:03 PT/INR, D-dimer PT 14.1 Seconds (9.4-12.1) H 04/30/18 02:39 Abnormal lab findings: Abnormal lab results WBC 14.0 K/mcL (4.3-11.1) H 05/03/18 09:54 RBC 5.11 M/mcL (3.82-4.97) H 05/03/18 09:54 MCV 74.4 fL (83.0-100.0) L 05/03/18 09:54 MCH 23.9 pg (28.0-33.3) L 05/03/18 09:54 RDW 15.6 % (11.5-14.5) H 05/03/18 09:54 Immature Gran % 4.4 % (0-4) H 05/03/18 09:54 Neutrophils # 9.2 K/mcL (1.6-8.9) H 05/03/18 09:54 Eosinophils # 1.2 K/mcL (0.0-0.6) H 05/03/18 09:54 PT 14.1 Seconds (9.4-12.1) H 04/30/18 02:39 ABG pCO2 34 mmHg (35-45) L 04/28/18 05:03 ABG pO2 83 mmHg (85-104) L 04/28/18 05:03 Carbon Dioxide 22 mEq/L (23-29) L 05/03/18 09:54 BUN 33 mg/dL (6-20) H 05/03/18 09:54 Creatinine 1.50 mg/dL (0.60-1.20) H 05/03/18 09:54 Est GFR ( Amer) 50 (> 60) L 05/03/18 09:54 Est GFR (Non-Af Amer) 42 (> 60) L 05/03/18 09:54 Glucose 133 mg/dL (70-105) H 05/03/18 09:54 POC Glucose 162 mg/dL (70-99) H 05/03/18 19:42 Phosphorus 4.7 mg/dL (2.7-4.5) H 05/01/18 03:23 AST 9 Units/L (13-39) L 04/28/18 03:18 Lactate Dehydrogenase 138 Units/L (140-271) L 04/27/18 23:00 C-Reactive Protein 189 mg/L (Less than 10) H 04/29/18 07:34 Albumin/Globulin Ratio 1.0 (1.1-2.2) L 04/28/18 03:18 Urine Clarity Cloudy (Clear) A 04/28/18 17:45 Urine Blood Moderate (Negative) H 04/28/18 17:45 Ur Squamous Epith Cells Many per lpf (None-Few) H 04/28/18 17:45 Fluid Appearance Cloudy (Clear) A 04/29/18 Unknown - Microbiology Findings Microbiology Findings: Microbiology, Last 48 Hours 04/27/18 23:00 Blood Culture - Final Peripheral Venipuncture No growth. Final report. 04/27/18 23:21 Blood Culture - Final Peripheral Venipuncture No growth. Final report. - Clinical Findings Intake & Output: Intake & Output 05/03/18 05/03/18 05/03/18 07:59 15:59 23:59 Intake Total 102 / 102 Balance 102 / 102 Weight 108 kg - Attending Attestation I saw and evaluated this patient and my medical decision-making was reviewed with the Resident Physician. I agree with the documented findings, disposition and treatment plan as described except to the extent set forth below. We i ndependently had slhm-[id number] contact with the patient Patient presented with acute hypoxic respiratory failure with bilateral alveolar infiltrates concerning for vasculitis/inflammatory pneumonia bronchoscopy with BAL did not show any evidence of those most likely is bacterial pneumonia there is low possibility for acute eosinophilic pneumonia so will do a prolonged steroid taper over 3 weeks to 10 mg daily and then we will see her in clinic and we will stop the prednisone therapy after outpatient pulmonology evaluation.
[2018-05-03] MEDS ORDERED: *HR* Promethazine 25 MG/ML VIAL IV ONE (16:08)
[2018-05-03] MEDS ORDERED: predniSONE 20 MG TABLET PO ONE (16:08)
[2018-05-03] MEDS ORDERED: *HR* Heparin 5,000 UNIT/ML VIAL IVP ONE (16:08)
--- NOTE | 2018-05-03 16:15 | Electrocardiograph Report ---
[place] [id number] Test Date: 2018-04-30 Pat Name: Deirdre Krishnan Department: 112 Room: [facility] Gender: F Order Builder Loader: : 1990 Requested By: Boston Morales Order Number: [id number] Reading MD: Deanna Reddy Measurements Intervals [place] Rate: 51 P: 36 VA: 148 QRS: 13 QRSD: 92 T: 21 QT: 433 QTc: 411 Interpretive Statements SINUS BRADYCARDIA WITH SINUS ARRHYTHMIA Electronically Signed On 05-03-2018 16:13:52 EDT by Deanna Reddy
[2018-05-03 16:40] LABS: Basophils # 0.1 K/mcL (0.0-0.2); Basophils % 0.6 %; Eosinophils # 1.2 K/mcL (0.0-0.6); Eosinophils % 8.6 %; Hemoglobin 12.2 g/dL (11.5-15.4); Immature Granulocytes % 4.4 % (0-4); Immature Platelets 5.4 % (1.1-6.1); Lymphocytes # 2.2 K/mcL (0.6-4.6); Mean Corpuscular HGB Conc 32.1 g/dL (31.6-35.5); Mean Corpuscular Hemoglobin 23.9 pg (28.0-33.3); Mean Corpuscular Volume 74.4 fL (83.0-100.0); Mean Platelet Volume 10.2 fL (9.4-12.4); Monocytes # 0.7 K/mcL (0.0-1.3); Monocytes % 4.9 %; Neutrophils # 9.2 K/mcL (1.6-8.9); Platelet Count 279 K/mcL (140-400); Red Blood Count 5.11 M/mcL (3.82-4.97); Red Cell Distribution Width 15.6 % (11.5-14.5); Segmented Neutrophils % 65.5 %
[2018-05-03 17:56] LABS: Potassium 3.8 mEq/L (3.5-5.1)
[2018-05-03 17:57] LABS: Calcium 8.9 mg/dL (8.6-10.3); Magnesium 1.6 mg/dL (1.6-2.6)
[2018-05-03] MEDS: *HR* Heparin 5,000 UNIT/ML VIAL SQ SCH (18:54)
[2018-05-03] MEDS: levoFLOXacin 750 MG TABLET PO SCH (22:41)
[2018-05-04 05:29] LABS: Basophils # 0.1 K/mcL (0.0-0.2); Basophils % 0.3 %; Eosinophils % 4.5 %; Hematocrit 38.4 % (35.3-44.9); Hemoglobin 12.2 g/dL (11.5-15.4); Immature Granulocytes % 3.6 % (0-4); Lymphocytes # 2.8 K/mcL (0.6-4.6); Lymphocytes % 12.9 %; Mean Corpuscular HGB Conc 31.8 g/dL (31.6-35.5); Mean Corpuscular Hemoglobin 23.5 pg (28.0-33.3); Mean Platelet Volume 10.3 fL (9.4-12.4); Monocytes # 1.1 K/mcL (0.0-1.3); Monocytes % 5.3 %; Neutrophils # 15.7 K/mcL (1.6-8.9); Platelet Count 294 K/mcL (140-400); Red Blood Count 5.19 M/mcL (3.82-4.97); Red Cell Distribution Width 15.3 % (11.5-14.5); Segmented Neutrophils % 73.4 %
[2018-05-04 05:46] LABS: BUN/Creatinine Ratio 20 (6-26); Blood Urea Nitrogen 26 mg/dL (6-20); Calcium 9.4 mg/dL (8.6-10.3); Carbon Dioxide 25 mEq/L (23-29); Chloride 102 mEq/L (98-107); Glucose 122 mg/dL (70-105); Osmolality,Calculated 284 (280-300); Potassium 3.8 mEq/L (3.5-5.1); Sodium 134 mEq/L (136-145); eGFR For Non-African Americans 50 (> 60)
[2018-05-04] MEDS: *HR* Heparin 5,000 UNIT/ML VIAL SQ SCH (06:11)
[2018-05-04 08:09] LABS: ANA IgG by ELISA NONE DETECTED (None Detected); GBM IgG Multiplex Bead Assay 0 AU/mL (0-19); Glomerular Basement Memb IgG NEGATIVE (Negative); Myeloperoxidase Ab 0 AU/mL (0-19); Serine Protease-3 Antibody 1 AU/mL (0-19)
[2018-05-04 08:17] LABS: RSV PCR Body Fluid NOT DETECTED
--- NOTE | 2018-05-04 08:28 | Nephrology Progress Note ---
Date of Encounter: 05/04/18 Time of Encounter: 08:26 - Assessment and Plan (1) CHIDI (acute kidney injury) Current Visit: Yes Status: Acute Oliguric CHIDI with renal risk factors: hx of pre-eclampsia/HTN (suggests possible baseline glomerulosclerosis though SCr was normal at baseline), Sepsis/PNA, NSAIDs (she chronically has been taking 2-3 IBU daily prior to admission), CTA with IV contrast exposure on 04/26/18, and slightly hypovolemic volume status). Renal function improving with decreased creatinine and increasing urine output. I anticipate full recovery. Will sign off. Call if questions or concerns. If renal function does not return to normal ok for her to follow-up as an outpatient. (2) Bilateral pneumonia Current Visit: No Status: Acute Qualifiers: Pneumonia type: due to unspecified organism Lung location: unspecified part of lung Qualified Code(s): J18.9 - Pneumonia, unspecified organism (3) Pneumonia Current Visit: Yes Status: Acute Qualifiers: Pneumonia type: due to unspecified organism Laterality: bilateral Lung location: unspecified part of lung Qualified Code(s): J18.9 - Pneumonia, unspecified organism (4) Sepsis Current Visit: Yes Status: Acute Qualifiers: Sepsis type: sepsis due to unspecified organism Qualified Code(s): A41.9 - Sepsis, unspecified organism (5) Hypertension Current Visit: Yes Status: Chronic Qualifiers: Hypertension type: essential hypertension Qualified Code(s): I10 - Essential (primary) hypertension (6) Hematuria Current Visit: Yes Status: Acute Qualifiers: Qualified Code(s): R31.9 - Hematuria, unspecified Subjective Principal diagnosis: Pneumonia Interval history: Patient seen. She is lying comfortably in bed. Objective - Vital Signs Vital signs: Vital Signs Temp Pulse Resp BP Pulse Ox 05/04/18 06:25 98.8 F 76 18 121/78 96 05/03/18 19:28 99.2 F 70 16 118/79 96 05/03/18 14:25 97.8 F 90 20 126/84 95 Intake and Output 05/03/18 05/04/18 05/04/18 23:59 07:59 15:59 Other: Meal Dinner Percent of Meal Consumed 100% # Voids 1 Blood Glucose* 132 - General Appearance General appearance: Present: well-developed, well-nourished EENT: Present: ATNC - Lab 05/04/18 04:42 05/04/18 04:42 Most recent lab results ABG pH 7.43 pH Units (7.32-7.45) 04/28/18 05:03 ABG pCO2 34 mmHg (35-45) L 04/28/18 05:03 ABG pO2 83 mmHg (85-104) L 04/28/18 05:03 ABG HCO3 23 mEq/L (21-27) 04/28/18 05:03 ABG O2 Saturation 97 % (95-98) 04/28/18 05:03 Calcium 9.4 mg/dL (8.6-10.3) 05/04/18 04:42 Phosphorus 4.7 mg/dL (2.7-4.5) H 05/01/18 03:23 Magnesium 1.6 mg/dL (1.6-2.6) 05/03/18 09:54 Consult Discharge Plan - Plan Referrals: Breann Brock MD [Primary Care Provider] -
--- NOTE | 2018-05-04 09:55 | Internal Med Progress Note ---
<Latricia Lopez - Last Filed: 05/04/18 12:18> Hospitalist Progress Note - Encounter Date of Encounter: 05/04/18 Time of Encounter: 09:30 - Subjective Interval History: Patient seen and examined. No acute events overnight. Patient is resting comfortably in bed. Patient states she feels much better. States she has more energy. Admits shortness of breath with exertion. Admits cough productive of yellow sputum. Denies any other complaints. Denies chest pain. Denies abdominal pain. Denies swelling. - Exam Vitals: Temp Pulse Resp BP Pulse Ox 98.8 F 76 18 121/78 96 05/04/18 06:25 05/04/18 06:25 05/04/18 06:25 05/04/18 06:25 05/04/18 06:25 Exam: General: Alert and oriented x3. No acute distress. Head: atraumatic, normocephalic. Eye: pupils equal and round. Sclera anicteric. EOMI. Mouth: oral mucosa moist. Normal oropharynx. Neck: supple. Trachea midline. Lungs: CTAB. No rhonchi, rales or wheezing. No respiratory distress. No accessory muscle use. Wet cough. Cardiovascular: Normal S1 & S2. No rubs or gallops. No JVD. Pulse regular. Abdomen: Normal bowel sounds. Nontender. No guarding, no rigidity, no rebound. Extremities: No joint swelling, edema, or clubbing. Nontender. Tremor in upper extremities. Skin: warm, dry, and intact. - Assessment and Plan (1) Pneumonia Current Visit: Yes Status: Acute Assessment and Plan: Multifocal pneumonia on chest x-ray and CT. Causative organism: unknown Was treated for community acquired pneumonia with Rocephin and Zithromax. Clinical status worsened in ICU, and antibiotic regimen broadened to vancomycin, Zosyn, and Levaquin. Strep pneumoniae and Legionella were negative. Influenza negative. Rapid strep was negative. MRSA screen was negative. Respiratory panel was negative. Autoimmune panel was negative. Blood cultures drawn 04/26 were negative. Blood cultures drawn 04/27 were negative. Bronchoscopy showed positive A. galactomannan antigen. Otherwise negative. Improved. Transferred from ICU to floor on 05/02. Antibiotics de-escalated to Levaquin. Continue Day 8 of Levaquin. Pulmonology consulted and following. (2) Sepsis Current Visit: Yes Status: Resolved Assessment and Plan: Met SIRS criteria with fever, tachycardia, tachypnea, and leukocytosis. Lactic acid normal. Source: multifocal pneumonia See above. Resolved. (3) Acute respiratory failure Current Visit: Yes Status: Acute Assessment and Plan: Secondary to multifocal pneumonia and ARDS. No history of asthma or COPD. Was treated with BiPAP and did not require intubation. Improved. Satting 95-96% on room air. Continue steroids and antibiotics. Walk test today to see if qualify for home oxygen. Pulmonology consulted and following. (4) CHIDI (acute kidney injury) Current Visit: Yes Status: Acute Assessment and Plan: Likely multifactorial, including sepsis, chronic NSAID use, IV contrast, Lasix, history of preeclampsia/HTN. On 04/29, Cr elevated at 3.81. Improving. Today, Cr 1.28. Full recovery anticipated. Continue to monitor. Nephrology signed off. (5) Hypertension Current Visit: Yes Status: Chronic Assessment and Plan: History of HTN. Patient was normotensive. Metoprolol was held given sepsis. BP remaining stable ~130/80. DVT Prophylaxis: Heparin 5000 units subcutaneous twice a day. - Time Spent with Patient Total time spent is greater than 50% in coordination of care (as documented) at patient's floor/unit and/or counseling patient: Internal Medicine: Result - Labs CBC & Chem 7: 05/04/18 11:46 05/04/18 04:42 Labs: Short CBC 05/03/18 05/04/18 Range/Units 09:54 04:42 WBC 14.0 H 21.4 H D (4.3-11.1) K/mcL Hgb 12.2 D 12.2 (11.5-15.4) g/dL Hct 38.0 38.4 (35.3-44.9) % Plt Count 279 294 (140-400) K/mcL Neutrophils # 9.2 H 15.7 H (1.6-8.9) K/mcL BMP 05/03/18 05/04/18 09:54 04:42 Sodium 136 134 L Potassium 3.8 3.8 Chloride 104 102 Carbon Dioxide 22 L 25 BUN 33 H 26 H Creatinine 1.50 H 1.28 H Glucose 133 H 122 H Calcium 8.9 9.4 - ABG Interpretation ABG results: ABG ABG pH 7.43 pH Units (7.32-7.45) 04/28/18 05:03 ABG pCO2 34 mmHg (35-45) L 04/28/18 05:03 ABG pO2 83 mmHg (85-104) L 04/28/18 05:03 ABG O2 Saturation 97 % (95-98) 04/28/18 05:03 PT/INR, D-dimer PT 14.1 Seconds (9.4-12.1) H 04/30/18 02:39 Consult Discharge Plan - Plan Additional Instructions: Follow-up appointments: If there is not an appointment listed below, please call your physician and schedule a follow-up appointment. If you have congestive heart failure and your symptoms return, make an appointment with your physician. Medication List: Carry an up to date list of medications you are taking at all time. We have given you an updated medication list including any new medications that you have been prescribed. Please provide that list to your primary provider Symptoms: If your condition changes or you experience any of the following symptoms, notify your physician immediately: Unusual or worsening pain, fever, persistent nausea and vomiting, bleeding, increase in swelling (especially in your legs), sudden weight gain, extreme dizziness, chest pain, increased drainage or redness from a wound or incision. Go to the emergency department if you experience a problem with breathing. Weights: If you have a history of swelling or shortness of breath, weigh yourself daily and notify your physician if you have a weight gain of two or more pounds in one day or 5 or more pounds in a week. If you experience any of the warning signs for stroke: Sudden numbness or weakness of the face, arm or leg; especially on one side of the body, sudden confusion, trouble speaking or understanding, sudden trouble seeing in one or both eyes, sudden trouble walking, dizziness, loss of balance or coordination, sudden sever headache with no cause; Call 911 or go to the emergency room. Stroke is a medical emergency. Some risk factors for stroke: Age, cigarette smoking, diabetes, excessive alcohol consumption, family history, high blood pressure, overweight, physical inactivity, prior stroke, heart attac k, diagnosis of carotid artery stenosis or other artery disease. If you smoke, STOP: Smoking or tobacco use significantly increases your risk of heart and lung disease. Your chance of disease greatly increases if you continue to smoke. For more information, call the [place] tobacco quit line for smoking cessation 9-334-VNIA-NOW ( ) Referrals: Breann Brock MD [Primary Care Provider] - Enid Martinez MD [Partnered Physician] - Prescriptions: levoFLOXacin [Levaquin] 750 mg PO DAILY #2 tablet predniSONE [PredniSONE] See Taper PO DAILY 16 Days #40 tablet <Amairani Chavez - Last Filed: 05/04/18 15:09> Hospitalist Progress Note - Exam Vitals: Temp Pulse Resp BP Pulse Ox 98.3 F 98 16 116/74 95 05/04/18 10:42 05/04/18 10:42 05/04/18 10:42 05/04/18 10:42 05/04/18 13:29 - Assessment and Plan (1) Pneumonia Current Visit: Yes Status: Acute (2) Sepsis Current Visit: Yes Status: Resolved (3) Acute respiratory failure Current Visit: Yes Status: Acute (4) Hypertension Current Visit: Yes Status: Chronic (5) CHIDI (acute kidney injury) Current Visit: Yes Status: Acute - Time Spent with Patient Total time spent is greater than 50% in coordination of care (as documented) at patient's floor/unit and/or counseling patient: Internal Medicine: Result - Labs CBC & Chem 7: 05/04/18 11:46 05/04/18 04:42 Labs: Short CBC 05/03/18 05/04/18 05/04/18 Range/Units 09:54 04:42 11:46 WBC 14.0 H 21.4 H D 19.9 H (4.3-11.1) K/mcL Hgb 12.2 D 12.2 12.3 (11.5-15.4) g/dL Hct 38.0 38.4 38.8 (35.3-44.9) % Plt Count 279 294 247 (140-400) K/mcL Neutrophils # 9.2 H 15.7 H 15.2 H (1.6-8.9) K/mcL BMP 05/03/18 05/04/18 09:54 04:42 Sodium 136 134 L Potassium 3.8 3.8 Chloride 104 102 Carbon Dioxide 22 L 25 BUN 33 H 26 H Creatinine 1.50 H 1.28 H Glucose 133 H 122 H Calcium 8.9 9.4 - ABG Interpretation ABG results: ABG ABG pH 7.43 pH Units (7.32-7.45) 04/28/18 05:03 ABG pCO2 34 mmHg (35-45) L 04/28/18 05:03 ABG pO2 83 mmHg (85-104) L 04/28/18 05:03 ABG O2 Saturation 97 % (95-98) 04/28/18 05:03 PT/INR, D-dimer PT 14.1 Seconds (9.4-12.1) H 04/30/18 02:39 - Attending Attestation I examined this patient and my medical decision-making was reviewed with the Resident Physician Dr Alanis. I agree with the documented findings, disposition and treatment plan as described except to the extent set forth below. Ms Krishnan presented with pna, resp failure and chidi. She had respiratory decline c/w ards picture which required broadened iv abx and bipap and is now stable on room air and abx de escalated. CHIDI improving continually and is near normal at time of dc. Pulm and nephro followed. She will dc to home with 2 days left to complete her 7 days of levauin as recommended by pulm and steroid taper + outpt fu. Awake,feeling much improved and near baseline. no wheezing, sob. + cough, + clear sputum. Ambulating with some mild sob and tachycardia but overall doing very well. Did 6 minute walk and does NOT meet for home oxygen. She has no complaints and is eager for dc to home today As I disucssed with Dr Martinez today, she may dc to home with 16 day taper of prednisone, 2 addl days levaquin and outpt pulm fu. In regards to A galactomanna, he is not concerned for fungal infection and will fu with her outpt. Aware of wbc count with cont leukocytosis, she is afebrile and clinically greatly improved. gen- alert, awake,appears stated age, well appearing, improved energy cv- reg rate and rhythm, normal s1,s2, no murmurs appreciated, no le edema lungs- ctabl, no wheezing, rhonchi or crackles, improved aeration, normal resp effort on room air neuro- AAOx3 Multifocal pna, organism unknown -cont levaquin 2 addl days to complete 7days of Levaquin (this differs from resident documentation, rx provided), steroid taper as per pulm : prednisone 40 mg PO daily x4d, followed by 30 mg x4d, 20 mg x4d, 10mg x4d then stop did not qualify for home o2 fu with pulm outpt Acute Resp Failure- resolved -echo with normal ef and no significant findings CHIDI, improving, creat 1.28 on dc - renal us c/w underlying parenchymal disease, fu with pcp, and nephro as needed HTN, stable, home med held in setting of sepsis, she may resume on dc dc to home in stable condition with outpt pulm fu <Latricia Lopez - Last Filed: 05/04/18 12:18> (1) Pneumonia Qualifiers: Pneumonia type: due to unspecified organism Laterality: bilateral Lung location: unspecified part of lung Qualified Code(s): J18.9 - Pneumonia, unspecified organism (2) Sepsis Qualifiers: Sepsis type: sepsis due to unspecified organism Qualified Code(s): A41.9 - Sepsis, unspecified organism (3) Acute respiratory failure Qualifiers: Respiratory failure complication: hypoxia Qualified Code(s): J96.01 - Acute respiratory failure with hypoxia (5) Hypertension Qualifiers: Hypertension type: essential hypertension Qualified Code(s): I10 - Essential (primary) hypertension <Amairani Chavez - Last Filed: 05/04/18 15:09> (1) Pneumonia Qualifiers: Pneumonia type: due to unspecified organism Laterality: bilateral Lung location: unspecified part of lung Qualified Code(s): J18.9 - Pneumonia, unspecified organism (2) Sepsis Qualifiers: Sepsis type: sepsis due to unspecified organism Qualified Code(s): A41.9 - Sepsis, unspecified organism (3) Acute respiratory failure Qualifiers: Respiratory failure complication: hypoxia Qualified Code(s): J96.01 - Acute respiratory failure with hypoxia (4) Hypertension Qualifiers: Hypertension type: essential hypertension Qualified Code(s): I10 - Essential (primary) hypertension
[2018-05-04 10:43] VITALS: BP 116/74
[2018-05-04 12:00] LABS: Basophils # 0.1 K/mcL (0.0-0.2); Basophils % 0.4 %; Eosinophils # 1.1 K/mcL (0.0-0.6); Eosinophils % 5.4 %; Hematocrit 38.8 % (35.3-44.9); Hemoglobin 12.3 g/dL (11.5-15.4); Immature Granulocytes % 3.9 % (0-4); Lymphocytes % 10.2 %; Mean Corpuscular HGB Conc 31.7 g/dL (31.6-35.5); Mean Corpuscular Hemoglobin 23.4 pg (28.0-33.3); Mean Corpuscular Volume 73.8 fL (83.0-100.0); Monocytes # 0.8 K/mcL (0.0-1.3); Monocytes % 3.8 %; Neutrophils # 15.2 K/mcL (1.6-8.9); Platelet Count 247 K/mcL (140-400); Red Blood Count 5.26 M/mcL (3.82-4.97); Red Cell Distribution Width 15.5 % (11.5-14.5); Segmented Neutrophils % 76.3 %
--- NOTE | 2018-05-04 13:53 | Discharge Summary ---
<Dong Alanis - Last Filed: 05/04/18 14:25> - NOTES TO OUTPATIENT PROVIDER Notes to Outpatient Provider: Follow-up with pulmonology in the outpatient setting Orders not resulted at time of discharge: Pending orders 04/27/18 22:23 Culture,Sputum with Gram Stain [RM] Stat 04/29/18 AFB Culture, Respiratory [TB] Routine AFB Smear [TB] Routine Fungal Culture [MYC] Routine Legionella Culture [RM] Routine 04/29/18 13:43 Miscellaneous Lab Test Routine Miscellaneous Lab Test Routine 05/05/18 04:00 BMP [Basic Metabolic Panel] AM 0400 Complete Blood Count [HEME] AM 0400 05/06/18 04:00 BMP [Basic Metabolic Panel] AM 0400 Complete Blood Count [HEME] AM 0400 05/07/18 04:00 BMP [Basic Metabolic Panel] AM 0400 Complete Blood Count [HEME] AM 0400 05/08/18 04:00 BMP [Basic Metabolic Panel] AM 0400 Complete Blood Count [HEME] AM 0400 05/09/18 04:00 BMP [Basic Metabolic Panel] AM 0400 Complete Blood Count [HEME] AM 0400 Date of Encounter: 05/04/18 Time of Encounter: 13:52 - Discharge Diagnosis (1) Acute respiratory failure with hypoxia Priority: Primary Status: Acute (2) Pneumonia Priority: Primary Status: Acute Qualifiers: Pneumonia type: due to unspecified organism Laterality: bilateral Lung location: unspecified part of lung Qualified Code(s): J18.9 - Pneumonia, unspecified organism (3) CHIDI (acute kidney injury) Priority: Secondary Status: Acute (4) Hypertension Priority: Secondary Status: Chronic Qualifiers: Hypertension type: essential hypertension Qualified Code(s): I10 - Essential (primary) hypertension Hospital course: Ms. Krishnan is a 28-year-old female with a PMH of HTN who presented to [facility] ED on 04/27/18 with a chief complaint of shortness of breath and cough. Patient reported that she felt lightheadedness, fatigue, and had a syncopal episode 2 days prior. She initially presented to [facility] emergency department where she was diagnosed with a right upper lobe pneumonia. She stated that she had a hard time breathing, and was using her abdominal muscles to breathe. This caused her great deal of pain and fatigue. She also reported intermittent fevers and nausea she denied having any recent upper respiratory illnesses, sore throat, chest pain, vomiting, diarrhea, dysuria, lower extremity swelling, or pain in her extremities. Upon arrival, patient had an elevated temperature at 101.7, tachycardia at 134, tachypnea at 34/m, blood pressure 133/88, and pulse ox 95. Laboratory analysis demonstrated an elevated white count of 17.5 with left shift. Respiratory infection panel was unremarkable. Chest x-ray demonstrated worsening of interstitial and airspace opacities, as well as bilateral pleural effusions. CT of the chest demonstrated multifocal pneumonia. She was initially treated with Rocephin and Zithromax for community acquired pneumonia. Patients clinical status worsened when she was transferred to the ICU, and her antibiotic regimen was broadened to vancomycin, Zosyn, and Levaquin. Patient was placed on BiPAP. Pulmonology was consulted for acute respiratory failure. Due to patients x-ray findings, there was a concern for ARDS. Patient was started on 40 mg of Solu- Medrol every 12 hours. Bronchoscopy was performed, negative for any cytopathology. Rheumatoid factor and viral panel were negative. Blood cultures drawn on 04/26 and 04/27 are negative. Was in the ICU for 6 days. Her clinical condition improved, and patient was subsequently transferred from the ICU to the floor on 05/02. Her antibiotics were DE escalated to Levaquin. Patient was treated with a total of 8 days of Levaquin. She was also treated with IV Solu- Medrol and prednisone. Pulmonology recommended tapering off steroids due to concern of acute eosinophilic pneumonia given history of smoking. Patient initially had oliguric CHIDI; initial creatinine was 0.59, but this increased subsequently to 3.28, reaching a high of 3.82 on 04/29. This was attributed to sepsis, chronic NSAID use, IV contrast, Lasix. Nephrology was consulted on 04/29. Nephrology recommended checking serologies such as on ANCA, EDUARDO and complement levels. These were unremarkable. Albumin infusions were started. Patients creatinine subsequently improved. Creatinine is 1.2 today. Nephrology signed off. Patient was seen and examined at bedside today. She reports feeling much better, and that she has more energy. Mild shortness of breath on exam. She denies fever, chills, nausea, vomiting, diarrhea, chest pain, palpitations, diaphoresis. No further complaints at this time. - Time Spent with Patient Total time spent providing and/or coordinating discharge services: Greater than 30 minutes (42 minutes) - Discharge Medications Prescriptions: levoFLOXacin [Levaquin] 750 mg PO DAILY #2 tablet predniSONE [PredniSONE] See Taper PO DAILY 16 Days #40 tablet Home Medications: Metoprolol Succinate [Toprol Xl] 25 mg PO DAILY 04/27/18 [History] levoFLOXacin [Levaquin] 750 mg PO DAILY #2 tablet 05/04/18 [Rx] predniSONE [PredniSONE] See Taper PO DAILY 16 Days #40 tablet 05/04/18 [Rx] Allergies/Adverse Reactions: Allergy/AdvReac Type Severity Reaction Status Date / Time No Known Allergies Allergy Verified 07/05/17 10:59 Date of admission: 04/27/18 21:46 Primary care physician: Breann Brock MD Consults: 04/27/18 23:15 Consult to Pulmonology [CONS] Routine Consulting Provider: Pulm Crit [facility] Sleep [facility] Reason for Consult: Hypoxic resp failure Call Completed: Yes 04/30/18 08:35 PT [Consult to Physical Therapy] [CONS] Routine Comment: Evaluate, develop and implement POC Reason for Consult: mobilization Does patient have active BEDREST order?: No Is patient medically & hemodynamically stable?: Yes Discharging clinician: Dong Alanis Anticipated date of discharge: 05/04/18 - Constitutional Vitals: Temp Pulse Resp BP Pulse Ox 98.3 F 98 16 116/74 95 05/04/18 10:42 05/04/18 10:42 05/04/18 10:42 05/04/18 10:42 05/04/18 13:29 General appearance: Present: mild distress, A&O X 3, answers questions appropriately Exam: General: Alert and oriented x3. No acute distress. Head: atraumatic, normocephalic. Eye: EOMI Neck: Trachea midline, no lymphadenopathy Lungs: Clear to auscultation bilaterally; no wheezes, rales, or rhonchi Cardiovascular: RRR, +S1, S2, no murmurs, rubs, or gallops Abdomen: Abdomen soft, nontender Extremities: No edema, clubbing, or cyanosis Skin: Dry, intact - Patient Status Disposition: Home, Self-Care Condition: Fair Overall status at discharge: patient is progressing back to baseline - Discharge Instructions Follow Up With: Breann Brock MD [Primary Care Provider] - Enid Martinez MD [Partnered Physician] - Additional Instructions: Follow-up appointments: If there is not an appointment listed below, please call your physician and schedule a follow-up appointment. If you have congestive heart failure and your symptoms return, make an appointment with your physician. Medication List: Carry an up to date list of medications you are taking at all time. We have given you an updated medication list including any new medications that you have been prescribed. Please provide that list to your primary provider Symptoms: If your condition changes or you experience any of the following symptoms, notify your physician immediately: Unusual or worsening pain, fever, persistent nausea and vomiting, bleeding, increase in swelling (especially in your legs), sudden weight gain, extreme dizziness, chest pain, increased drainage or redness from a wound or incision. Go to the emergency department if you experience a problem with breathing. Weights: If you have a history of swelling or shortness of breath, weigh yourself daily and notify your physician if you have a weight gain of two or more pounds in one day or 5 or more pounds in a week. If you experience any of the warning signs for stroke: Sudden numbness or weakness of the face, arm or leg; especially on one side of the body, sudden confusion, trouble speaking or understanding, sudden trouble seeing in one or both eyes, sudden trouble walking, dizziness, loss of balance or coordination, sudden sever headache with no cause; Call 911 or go to the emergency room. Stroke is a medical emergency. Some risk factors for stroke: Age, cigarette smoking, diabetes, excessive alcohol consumption, family history, high blood pressure, overweight, physical inactivity, prior stroke, heart attack, diagnosis of carotid artery stenosis or other artery disease. If you smoke, STOP: Smoking or tobacco use significantly increases your risk of heart and lung disease. Your chance of disease greatly increases if you continue to smoke. For more information, call the [place] tobacco quit line for smoking cessation 5-686-QAWR-NOW ( ) - Diet and Activity Activity: increase activity as tolerated Diet: advance to your usual diet <Amairani Chavez M - Last Filed: 05/04/18 15:09> Orders not resulted at time of discharge: Pending orders 04/27/18 22:23 Culture,Sputum with Gram Stain [RM] Stat 04/29/18 AFB Culture, Respiratory [TB] Routine AFB Smear [TB] Routine Fungal Culture [MYC] Routine Legionella Culture [RM] Routine 04/29/18 13:43 Miscellaneous Lab Test Routine Miscellaneous Lab Test Routine 05/05/18 04:00 BMP [Basic Metabolic Panel] AM 0400 Complete Blood Count [HEME] AM 0400 05/06/18 04:00 BMP [Basic Metabolic Panel] AM 0400 Complete Blood Count [HEME] AM 0400 05/07/18 04:00 BMP [Basic Metabolic Panel] AM 0400 Complete Blood Count [HEME] AM 0400 05/08/18 04:00 BMP [Basic Metabolic Panel] AM 0400 Complete Blood Count [HEME] AM 0400 05/09/18 04:00 BMP [Basic Metabolic Panel] AM 0400 Complete Blood Count [HEME] AM 0400 - Discharge Diagnosis (1) Pneumonia Status: Acute Qualifiers: Pneumonia type: due to unspecified organism Laterality: bilateral Lung location: unspecified part of lung Qualified Code(s): J18.9 - Pneumonia, unspecified organism (2) Sepsis Status: Resolved Qualifiers: Sepsis type: sepsis due to unspecified organism Qualified Code(s): A41.9 - Sepsis, unspecified organism (3) Acute respiratory failure Status: Acute Qualifiers: Respiratory failure complication: hypoxia Qualified Code(s): J96.01 - Acute respiratory failure with hypoxia (4) Hypertension Status: Chronic Qualifiers: Hypertension type: essential hypertension Qualified Code(s): I10 - Essential (primary) hypertension (5) CHIDI (acute kidney injury) Status: Acute Hospital course: Ms. Krishnan is a 28 year old female - Time Spent with Patient Total time spent providing and/or coordinating discharge services: Date of admission: 04/27/18 21:46 Primary care physician: Breann Brock MD Consults: 04/27/18 23:15 Consult to Pulmonology [CONS] Routine Consulting Provider: Pulm Crit Care [facility] Sleep [facility] Reason for Consult: Hypoxic resp failure Call Completed: Yes 04/30/18 08:35 PT [Consult to Physical Therapy] [CONS] Routine Comment: Evaluate, develop and implement POC Reason for Consult: mobilization Does patient have active BEDREST order?: No Is patient medically & hemodynamically stable?: Yes - Constitutional Vitals: Temp Pulse Resp BP Pulse Ox 98.3 F 98 16 116/74 95 05/04/18 10:42 05/04/18 10:42 05/04/18 10:42 05/04/18 10:42 05/04/18 13:29 - Attending Attestation I examined this patient and my medical decision-making was reviewed with the Resident Physician Dr Alanis. I agree with the documented findings, disposition and treatment plan as described except to the extent set forth below. Ms Krishnan presented with pna, resp failure and chidi. She had respiratory decline c/w ards picture which required broadened iv abx and bipap and is now stable on room air and abx de escalated. CHIDI improving continually and is near normal at time of dc. Pulm and nephro followed. She will dc to home with 2 days left to complete her 7 days of levauin as recommended by pulm and steroid taper + outpt fu. Awake,feeling much improved and near baseline. no wheezing, sob. + cough, + clear sputum. Ambulating with some mild sob and tachycardia but overall doing very well. Did 6 minute walk and does NOT meet for home oxygen. She has no complaints and is eager for dc to home today As I disucssed with Dr Martinez today, she may dc to home with 16 day taper of prednisone, 2 addl days levaquin and outpt pulm fu. In regards to A galactomanna, he is not concerned for fungal infection and will fu with her outpt. Aware of wbc count with cont leukocytosis, she is afebrile and clinically greatly improved. gen- alert, awake,appears stated age, well appearing, improved energy cv- reg rate and rhythm, normal s1,s2, no murmurs appreciated, no le edema lungs- ctabl, no wheezing, rhonchi or crackles, improved aeration, normal resp effort on room air neuro- AAOx3 Multifocal pna, organism unknown -cont levaquin 2 addl days to complete 7days of Levaquin (this differs from resident documentation, rx provided), steroid taper as per pulm : prednisone 40 mg PO daily x4d, followed by 30 mg x4d, 20 mg x4d, 10mg x4d then stop did not qualify for home o2 fu with pulm outpt Acute Resp Failure- resolved -echo with normal ef and no significant findings CHIDI, improving, creat 1.28 on dc - renal us c/w underlying parenchymal disease, fu with pcp, and nephro as needed HTN, stable, home med held in setting of sepsis, she may resume on dc dc to home in stable condition with outpt pulm fu
--- NOTE | 2018-05-04 16:03 | Event Note ---
Date of Encounter: 05/04/18 Time of Encounter: 13:00 Patient was informed about BAL aspergillus galactomannan i told her it is very low suspicion for aspergillus pneumonia . Will do a 16 day taper of steroids spoke with the hospitalist about the new finding . To be followed in [facility] in 2-4 weeks .
== END 2018-05-04 16:09 | disposition home or self-care (01) | DRG 871 ==
LOC: SUATTDRO 21:46 → ICNU 21:46 → 3NENU 05-02 14:43
PROVIDERS: ADMIT Internal Medicine; ATTEND Internal Medicine